=== PATIENT | female | born 1975 | race Caucasian/White ===

== ENCOUNTER 2016-12-26 00:27 | Inpatient (IN) | payer MEDICARE, MEDICAID ==
[~2016-12-26] VITALS: Ht 172.7 cm; Wt 127.9 kg
[~2016-12-26 00:27] MED LIST: DIVAL250 PO; PHEN100C4 PO
[2016-12-26] MEDS ORDERED: IPRATROPIUM BROMIDE (0.02%) 0.5MG/2.5ML NEB HHN STA (00:55)
[2016-12-26] MEDS ORDERED: METHYLPREDNISOLONE SOD SUCC 125 MG/2 ML VIAL IV STA (00:55)
[2016-12-26] MEDS ORDERED: MAGNESIUM 2 G PREMIX 50 ML IV ONE (01:00)
[2016-12-26] MEDS: ALBUTEROL (0.083%) 2.5MG/3ML NEB HHN SCH ×3 (01:05→02:28)
[2016-12-26 01:15] LABS: BASOPHILS % 0.6 % (0.0-2.0); EOSINOPHILS % 0.2 % (0.0-5.0); HEMATOCRIT. 37.8 % (36.0-48.0); HEMOGLOBIN. 12.7 g/dL (12.0-16.0); LYMPHOCYTES % 22.9 % (20.0-50.0); MEAN CORPUSCULAR HEMOGLOBIN 30.3 pg (28.0-32.0); MEAN CORPUSCULAR VOLUME 90.2 fL (81.0-99.0); MEAN PLATELET VOLUME 8.8 fl (7.4-10.4); MONOCYTES % 5.1 % (2.0-8.0); NEUTROPHILS % 71.2 % (40.0-76.0); PLATELET 249 x1000/uL (130-400); RED CELL DISTRIBUTION WIDTH 14.5 % (11.6-14.6)
[2016-12-26] MEDS ORDERED: LORAZEPAM 2MG/ML CPJ IV ONE ×3 (01:15→05:00)
[2016-12-26 01:26] LABS: PROTHROMBIN TIME 10.6 sec (9.4-11.6)
[2016-12-26 01:34] LABS: CARBON DIOXIDE 23 mEq/L (21-32); CHLORIDE 107 mEq/L (98-107); TROPONIN I < 0.02 ng/mL (0.00-0.04)
[2016-12-26] MEDS ORDERED: TETRACAINE/BENZOCAINE/BUTAMBEN 20 GM SPRAY MM SCH ×2 (02:00→05:00)
[2016-12-26] MEDS ORDERED: ALPR2TAB2 PO (09:01)
[2016-12-26] MEDS ORDERED: METF10002 PO (09:07)
[2016-12-26 09:38] VITALS: BP 149/97
[2016-12-26] MEDS ORDERED: HYDROMORPHONE HCL/PF 2MG/ML CPJ IV PRN (10:30)
[2016-12-26] MEDS ORDERED: IPRATROPIUM/ALBUTEROL 0.5-3(2.5)MG/3ML NEB INH PRN (10:30)
[2016-12-26] MEDS: METHYLPREDNISOLONE SOD SUCC 125 MG/2 ML VIAL IV SCH ×2 (10:30→11:45)
[2016-12-26] MEDS ORDERED: DIVALPROEX SODIUM 250MG ER TABLET PO SCH (10:30)
[2016-12-26] MEDS ORDERED: ONDANSETRON HCL 4MG/2ML VIAL IV PRN (10:30)
[2016-12-26] MEDS ORDERED: HYDROCODONE/ACETAMINOPHEN 5/325MG TABLET PO PRN (10:30)
[2016-12-26] MEDS ORDERED: PHENYTOIN SODIUM EXTENDED 100MG CAPSULE PO SCH (10:30)
[2016-12-26] MEDS ORDERED: LORAZEPAM 2MG/ML CPJ IV PRN (10:30)
[2016-12-26] MEDS ORDERED: DEXTROSE 50% WATER 50ML SYRINGE IV PRN (11:00)
[2016-12-26] MEDS ORDERED: LEVOFLOXACIN 500MG PREMIX 100 ML IV SCH (12:00)
[2016-12-26] MEDS ORDERED: BLOOD SUGAR DIAGNOSTIC STRIP TEST SCH (12:30)
[2016-12-26] MEDS ORDERED: INSULIN LISPRO 100 UNITS/ML SUBCUT SCH (13:00)
[2016-12-27] MEDS ORDERED: FOLIC ACID 1MG TABLET PO SCH (09:00)
[2016-12-27] MEDS ORDERED: THIAMINE HCL 100MG TABLET PO SCH (09:00)
== END 2016-12-26 12:15 | disposition left against medical advice (07) | DRG 189 ==
LOC: ER 00:27 → 5EST 05:02 → ENRESERV 08:04
PROVIDERS: ADMIT Internal Medicine Nephrology; ATTEND Internal Medicine Nephrology
PROC: 5A09357 Assistance with Respiratory Ventilation, Less than 24 Consecutive Hours, Continuous Positive Airway Pressure (ICD-10-PCS; principal; 2016-12-26)
DX: J96.00 Acute respiratory failure, unspecified whether with hypoxia or hypercapnia (principal); J45.901 Unspecified asthma with (acute) exacerbation; J44.9 Chronic obstructive pulmonary disease, unspecified; K50.90 Crohn's disease, unspecified, without complications; G40.909 Epilepsy, unspecified, not intractable, without status epilepticus; F15.10 Other stimulant abuse, uncomplicated; E11.9 Type 2 diabetes mellitus without complications; I25.10 Atherosclerotic heart disease of native coronary artery without angina pectoris; F14.10 Cocaine abuse, uncomplicated; Z53.21 Procedure and treatment not carried out due to patient leaving prior to being seen by health care provider; I25.2 Old myocardial infarction; Z88.5 Allergy status to narcotic agent; Z79.899 Other long term (current) drug therapy; Z90.710 Acquired absence of both cervix and uterus
CPT/HCPCS: 36415; 71010; 80053; 83880; 84484; 85025; 85610; 93005; 94640; 94660; 96361; 96374; 96375; 99285; J1956; J2060; J2930; J3475; J7611

== ENCOUNTER 2016-12-31 01:44 | Inpatient (IN) | payer MEDICARE, MEDICAID ==
[~2016-12-31] VITALS: Ht 165.1 cm; Wt 103.4 kg
[~2016-12-31 01:44] MED LIST changes: +ALPR2TAB2 PO; +METF10002 PO
[2016-12-31] MEDS ORDERED: ALBUTEROL (0.083%) 2.5MG/3ML NEB HHN STA (02:49)
[2016-12-31] MEDS ORDERED: IPRATROPIUM BROMIDE (0.02%) 0.5MG/2.5ML NEB HHN STA (02:49)
[2016-12-31] MEDS ORDERED: METHYLPREDNISOLONE SOD SUCC 125 MG/2 ML VIAL IV ONE (03:00)
[2016-12-31] MEDS ORDERED: GUAIFENESIN/CODEINE 200-20MG/10ML UDC PO ONE (03:00)
[2016-12-31 03:27] LABS: BASOPHILS % 0.8 % (0.0-2.0); EOSINOPHILS % 1.4 % (0.0-5.0); HEMATOCRIT. 35.5 % (36.0-48.0); HEMOGLOBIN. 12.3 g/dL (12.0-16.0); LYMPHOCYTES % 31.4 % (20.0-50.0); MEAN CORPUSCULAR HEMOGLOBIN 30.8 pg (28.0-32.0); MEAN CORPUSCULAR VOLUME 89.2 fL (81.0-99.0); MEAN PLATELET VOLUME 8.7 fl (7.4-10.4); MONOCYTES % 3.8 % (2.0-8.0); NEUTROPHILS % 62.6 % (40.0-76.0); PLATELET 181 x1000/uL (130-400); RED BLOOD CELL COUNT 3.98 mill/uL (4.2-5.4); RED CELL DISTRIBUTION WIDTH 14.4 % (11.6-14.6)
[2016-12-31 03:40] LABS: CARBON DIOXIDE 25 mEq/L (21-32); CHLORIDE 108 mEq/L (98-107)
[2016-12-31] MEDS: SODIUM CHLORIDE 0.9% 1,000 ML IV SCH ×2 (06:11→06:21)
[2016-12-31 08:00] VITALS: BP 134/77
[2016-12-31 09:59] VITALS: BP 134/77
[2016-12-31] MEDS ORDERED: GABA300C PO (10:50)
[2016-12-31 11:00] VITALS: BP 141/81
[2016-12-31] MEDS ORDERED: ENOXAPARIN 40MG/0.4ML SYR SUBCUT SCH (11:15)
[2016-12-31] MEDS ORDERED: IPRATROPIUM/ALBUTEROL 0.5-3(2.5)MG/3ML NEB INH PRN (11:15)
[2016-12-31] MEDS ORDERED: DEXTROSE 50% WATER 50ML SYRINGE IV PRN (11:45)
[2016-12-31] MEDS: METHYLPREDNISOLONE SOD SUCC 125 MG/2 ML VIAL IV SCH ×3 (11:56→23:40)
[2016-12-31] MEDS: HYDROCODONE/ACETAMINOPHEN 5/325MG TABLET PO PRN ×2 (11:57→20:53)
[2016-12-31] MEDS: ENOXAPARIN 30MG/0.3ML SYR SUBCUT SCH ×2 (11:57→21:39)
[2016-12-31] MEDS: BLOOD SUGAR DIAGNOSTIC STRIP TEST SCH ×3 (11:57→21:38)
[2016-12-31] MEDS: INSULIN LISPRO 100 UNITS/ML SUBCUT SCH ×3 (12:57→21:00)
[2016-12-31] MEDS ORDERED: LEVOFLOXACIN 500MG PREMIX 100 ML IV SCH (13:00)
[2016-12-31] MEDS ORDERED: POTASSIUM CHLORIDE 20MEQ TABLET SR PO NR (13:00)
[2016-12-31] MEDS: IPRATROPIUM/ALBUTEROL 0.5-3(2.5)MG/3ML NEB INH SCH ×4 (13:12→23:11)
[2016-12-31] MEDS: ACETAMINOPHEN 325MG TABLET PO PRN (14:36)
[2016-12-31] MEDS: GUAIFENESIN 200MG/10ML SUGAR FREE UDC PO PRN ×2 (14:40→22:11)
[2016-12-31 16:17] VITALS: BP 144/76
[2016-12-31] MEDS: LORAZEPAM 2MG/ML CPJ IM PRN (16:42)
[2016-12-31] MEDS: LEVOFLOXACIN 500MG TABLET PO SCH (16:49)
[2016-12-31 20:00] VITALS: BP 155/75
[2016-12-31] MEDS: HYDROMORPHONE HCL/PF 2MG/ML CPJ IV PRN (22:03)
[2016-12-31] MEDS: ONDANSETRON HCL 4MG/2ML VIAL IV PRN (22:14)
[2017-01-01] VITALS: BP 133/76
[2017-01-01] MEDS: LORAZEPAM 2MG/ML CPJ IM PRN ×2 (00:55→17:31)
[2017-01-01] MEDS ORDERED: LOPE2TAB26 PO (03:12)
[2017-01-01] MEDS ORDERED: HYDR10SY11 PO (03:12)
[2017-01-01] MEDS ORDERED: NITR0.4T SL (03:12)
[2017-01-01] MEDS ORDERED: ACET-2178 PO (03:12)
[2017-01-01 04:00] VITALS: BP 102/44
[2017-01-01] MEDS: IPRATROPIUM/ALBUTEROL 0.5-3(2.5)MG/3ML NEB INH SCH ×6 (04:29→23:27)
[2017-01-01] MEDS: METHYLPREDNISOLONE SOD SUCC 125 MG/2 ML VIAL IV SCH ×4 (05:14→23:02)
[2017-01-01] MEDS: BLOOD SUGAR DIAGNOSTIC STRIP TEST SCH ×4 (06:37→20:59)
[2017-01-01] MEDS: INSULIN LISPRO 100 UNITS/ML SUBCUT SCH ×4 (07:50→20:59)
[2017-01-01 08:00] VITALS: BP 108/59
[2017-01-01] MEDS: LEVOFLOXACIN 500MG TABLET PO SCH (09:56)
[2017-01-01] MEDS: ASPIRIN 81MG EC TABLET PO SCH (09:56)
[2017-01-01] MEDS: ENOXAPARIN 30MG/0.3ML SYR SUBCUT SCH ×2 (09:56→21:00)
[2017-01-01 11:45] LABS: BASOPHILS % 0.3 % (0.0-2.0); HEMATOCRIT. 36.3 % (36.0-48.0); HEMOGLOBIN. 12.2 g/dL (12.0-16.0); LYMPHOCYTES % 7.7 % (20.0-50.0); MEAN CORPUSCULAR HEMOGLOBIN 30.6 pg (28.0-32.0); MEAN CORPUSCULAR VOLUME 90.7 fL (81.0-99.0); MEAN PLATELET VOLUME 8.6 fl (7.4-10.4); MONOCYTES % 2.3 % (2.0-8.0); NEUTROPHILS % 89.7 % (40.0-76.0); PLATELET 201 x1000/uL (130-400); RED CELL DISTRIBUTION WIDTH 14.7 % (11.6-14.6)
[2017-01-01 11:55] VITALS: BP 118/50
[2017-01-01 12:02] LABS: CARBON DIOXIDE 25 mEq/L (21-32); CHLORIDE 108 mEq/L (98-107)
[2017-01-01] MEDS ORDERED: LIDOCAINE HCL/PF 1% 2ML VIAL ONE (13:11)
[2017-01-01] MEDS: GUAIFENESIN 200MG/10ML SUGAR FREE UDC PO PRN ×2 (13:31→22:43)
[2017-01-01] MEDS: ONDANSETRON HCL 4MG/2ML VIAL IV PRN ×2 (13:31→23:02)
[2017-01-01] MEDS: HYDROMORPHONE HCL/PF 2MG/ML CPJ IV PRN ×2 (14:08→22:48)
[2017-01-01 14:15] LABS: BG BASE EXCESS -1.2 mmol/L (-2.0-2.0); BG CARBOXYHEMOGLOBIN 0.2 % (0.5-1.5); BG DEOXYHEMOGLOBIN 3.4 % (0.0-5.0); BG FRACTION INSPIRED OXYGEN 21; BG HCO3 ACT 23.1 mmol/L (22.0-26.0); BG METHEMOGLOBIN 0.3 % (0.0-1.5); BG OXYGEN SATURATION 96.6 % (92.0-98.5); BG OXYHEMOGLOBIN 96.1 % (94.0-97.0); BG PCO2 37.2 mmHg (35.0-45.0); BG PO2 88.4 mmHg (75.0-100.0); BG SAMPLE SITE RIGHT RADIAL; BG TOTAL HEMOGLOBIN 13.3 g/dL (12.0-18.0); BG VENT MODE ROOM AIR
[2017-01-01] MEDS: BUDESONIDE 0.5MG/2ML NEB HHN SCH ×2 (14:29→23:27)
[2017-01-01 16:00] VITALS: BP 125/74
[2017-01-01 20:00] VITALS: BP 120/70
[2017-01-02] VITALS (7 sets, daily range): BP systolic 115–156; BP diastolic 65–88
[2017-01-02] MEDS: LORAZEPAM 2MG/ML CPJ IM PRN (01:07)
[2017-01-02] MEDS: HYDROMORPHONE HCL/PF 2MG/ML CPJ IV PRN ×5 (02:57→22:40)
[2017-01-02] MEDS: DIPHENHYDRAMINE 50MG CAPSULE PO PRN ×3 (03:03→23:13)
[2017-01-02] MEDS: IPRATROPIUM/ALBUTEROL 0.5-3(2.5)MG/3ML NEB INH SCH ×5 (04:17→20:10)
[2017-01-02] MEDS: BLOOD SUGAR DIAGNOSTIC STRIP TEST SCH ×4 (06:46→21:45)
[2017-01-02] MEDS: METHYLPREDNISOLONE SOD SUCC 125 MG/2 ML VIAL IV SCH ×2 (06:49→12:03)
[2017-01-02] MEDS: INSULIN LISPRO 100 UNITS/ML SUBCUT SCH ×4 (07:42→21:00)
[2017-01-02] MEDS: BUDESONIDE 0.5MG/2ML NEB HHN SCH ×2 (08:35→20:10)
[2017-01-02] MEDS: GABAPENTIN 300MG CAPSULE PO SCH (08:43)
[2017-01-02] MEDS: ASPIRIN 81MG EC TABLET PO SCH (08:43)
[2017-01-02] MEDS: LEVOFLOXACIN 500MG TABLET PO SCH (08:43)
[2017-01-02] MEDS: DIVALPROEX SODIUM 500MG DR TABLET PO SCH (08:43)
[2017-01-02] MEDS: ENOXAPARIN 30MG/0.3ML SYR SUBCUT SCH ×2 (08:44→22:17)
[2017-01-02] MEDS ORDERED: DIVALPROEX SODIUM 500MG DR TABLET PO ONE (09:00)
[2017-01-02 17:23] LABS: *AMPHETAMINES SCREEN URINE NEGATIVE (NEGATIVE); *BARBITURATES SCREEN URINE NEGATIVE (NEGATIVE); *BENZODIAZEPINES SCREEN URINE NEGATIVE (NEGATIVE); *COCAINE SCREEN URINE NEGATIVE (NEGATIVE); CANNABINOID URINE SCREEN NEGATIVE (NEGATIVE); METHADONE URINE SCREEN NEGATIVE (NEGATIVE); PHENCYCLIDINE URINE SCREEN NEGATIVE (NEGATIVE)
[2017-01-02 17:30] LABS: OPIATES URINE SCREEN PRESUMTIVE POSITIVE (NEGATIVE)
[2017-01-02] MEDS: ACETAMINOPHEN 325MG TABLET PO PRN (19:21)
[2017-01-02] MEDS: METHYLPREDNISOLONE SOD SUCC 40 MG/ML VIAL IV SCH (22:15)
[2017-01-02] MEDS: GUAIFENESIN 600MG ER TABLET PO SCH (22:15)
[2017-01-02] MEDS: LEVOFLOXACIN 500MG PREMIX 100 ML IV SCH (22:18)
[2017-01-02] MEDS: ONDANSETRON HCL 4MG/2ML VIAL IV PRN (22:40)
[2017-01-03] VITALS: BP 129/81
[2017-01-03] MEDS: IPRATROPIUM/ALBUTEROL 0.5-3(2.5)MG/3ML NEB INH SCH ×6 (00:12→23:52)
[2017-01-03] MEDS: LORAZEPAM 2MG/ML CPJ IM PRN (00:44)
[2017-01-03 03:50] VITALS: BP 126/66
[2017-01-03] MEDS: HYDROMORPHONE HCL/PF 2MG/ML CPJ IV PRN ×4 (03:50→21:11)
[2017-01-03] MEDS: METHYLPREDNISOLONE SOD SUCC 40 MG/ML VIAL IV SCH ×2 (06:35→18:16)
[2017-01-03] MEDS: BLOOD SUGAR DIAGNOSTIC STRIP TEST SCH ×4 (06:58→21:12)
[2017-01-03 07:23] VITALS: BP 130/67
[2017-01-03] MEDS: INSULIN LISPRO 100 UNITS/ML SUBCUT SCH ×4 (07:50→21:00)
[2017-01-03] MEDS: GUAIFENESIN 600MG ER TABLET PO SCH ×2 (08:43→21:08)
[2017-01-03] MEDS: DIVALPROEX SODIUM 500MG DR TABLET PO SCH (08:43)
[2017-01-03] MEDS: ASPIRIN 81MG EC TABLET PO SCH (08:43)
[2017-01-03] MEDS: GABAPENTIN 300MG CAPSULE PO SCH (08:43)
[2017-01-03] MEDS: DIPHENHYDRAMINE 50MG CAPSULE PO PRN ×2 (08:44→18:16)
[2017-01-03] MEDS: ENOXAPARIN 30MG/0.3ML SYR SUBCUT SCH ×2 (08:45→21:09)
[2017-01-03] MEDS: BUDESONIDE 0.5MG/2ML NEB HHN SCH ×2 (08:51→19:55)
[2017-01-03 11:15] VITALS: BP 149/72
[2017-01-03 15:22] VITALS: BP 158/98
[2017-01-03] MEDS ORDERED: LORAZEPAM 2MG/ML CPJ IM PRN (16:30)
[2017-01-03] MEDS: LORAZEPAM 2MG/ML CPJ IV PRN (17:15)
[2017-01-03 20:00] VITALS: BP 153/87
[2017-01-03] MEDS: LEVOFLOXACIN 500MG PREMIX 100 ML IV SCH (21:11)
[2017-01-04] VITALS: BP 139/79
[2017-01-04 04:00] VITALS: BP 133/75
[2017-01-04] MEDS: IPRATROPIUM/ALBUTEROL 0.5-3(2.5)MG/3ML NEB INH SCH ×5 (04:07→20:30)
[2017-01-04] MEDS: BLOOD SUGAR DIAGNOSTIC STRIP TEST SCH ×4 (06:32→21:09)
[2017-01-04] MEDS: METHYLPREDNISOLONE SOD SUCC 40 MG/ML VIAL IV SCH ×2 (06:34→17:53)
[2017-01-04] MEDS: INSULIN LISPRO 100 UNITS/ML SUBCUT SCH ×4 (07:50→21:00)
[2017-01-04 08:00] VITALS: BP 142/92
[2017-01-04] MEDS: GUAIFENESIN 600MG ER TABLET PO SCH ×2 (09:12→21:14)
[2017-01-04] MEDS: ENOXAPARIN 30MG/0.3ML SYR SUBCUT SCH ×2 (09:12→21:56)
[2017-01-04] MEDS: GABAPENTIN 300MG CAPSULE PO SCH (09:12)
[2017-01-04] MEDS: ONDANSETRON HCL 4MG/2ML VIAL IV PRN (09:12)
[2017-01-04] MEDS: ASPIRIN 81MG EC TABLET PO SCH (09:12)
[2017-01-04] MEDS: GUAIFENESIN 200MG/10ML SUGAR FREE UDC PO PRN ×2 (09:12→17:53)
[2017-01-04] MEDS: DIVALPROEX SODIUM 500MG DR TABLET PO SCH (09:12)
[2017-01-04] MEDS: HYDROMORPHONE HCL/PF 2MG/ML CPJ IV PRN ×3 (09:14→21:24)
[2017-01-04] MEDS: LORAZEPAM 2MG/ML CPJ IV PRN ×2 (11:45→23:57)
[2017-01-04 12:00] VITALS: BP 125/64
[2017-01-04 16:00] VITALS: BP 90/49
[2017-01-04 20:00] VITALS: BP 159/102
[2017-01-04] MEDS: LEVOFLOXACIN 500MG PREMIX 100 ML IV SCH (21:14)
[2017-01-05] VITALS: BP 131/77
[2017-01-05] MEDS: DIPHENHYDRAMINE 50MG CAPSULE PO PRN ×4 (00:01→20:54)
[2017-01-05] MEDS: IPRATROPIUM/ALBUTEROL 0.5-3(2.5)MG/3ML NEB INH SCH ×6 (00:08→23:14)
[2017-01-05] MEDS: BUDESONIDE 0.5MG/2ML NEB HHN SCH ×3 (00:09→19:57)
[2017-01-05] MEDS: ONDANSETRON HCL 4MG/2ML VIAL IV PRN ×3 (00:30→15:47)
[2017-01-05] MEDS: HYDROMORPHONE HCL/PF 2MG/ML CPJ IV PRN ×4 (03:01→20:54)
[2017-01-05 04:00] VITALS: BP 131/78
[2017-01-05] MEDS: HYDROCODONE/ACETAMINOPHEN 5/325MG TABLET PO PRN (06:02)
[2017-01-05] MEDS: METHYLPREDNISOLONE SOD SUCC 40 MG/ML VIAL IV SCH ×2 (06:02→17:42)
[2017-01-05] MEDS: BLOOD SUGAR DIAGNOSTIC STRIP TEST SCH ×4 (06:12→20:53)
[2017-01-05 07:36] VITALS: BP 132/81
[2017-01-05] MEDS: INSULIN LISPRO 100 UNITS/ML SUBCUT SCH ×4 (07:50→20:55)
[2017-01-05] MEDS: DIVALPROEX SODIUM 500MG DR TABLET PO SCH (09:42)
[2017-01-05] MEDS: GABAPENTIN 300MG CAPSULE PO SCH (09:42)
[2017-01-05] MEDS: GUAIFENESIN 600MG ER TABLET PO SCH ×2 (09:42→20:52)
[2017-01-05] MEDS: ENOXAPARIN 30MG/0.3ML SYR SUBCUT SCH ×2 (09:42→20:53)
[2017-01-05] MEDS: ASPIRIN 81MG EC TABLET PO SCH (09:42)
[2017-01-05 11:25] VITALS: BP 117/66
[2017-01-05 15:39] VITALS: BP 114/84
[2017-01-05 20:00] VITALS: BP 135/63
[2017-01-05] MEDS: LEVOFLOXACIN 500MG PREMIX 100 ML IV SCH (20:52)
[2017-01-05] MEDS: LORAZEPAM 2MG/ML CPJ IV PRN (20:53)
[2017-01-06] VITALS: BP 139/98
[2017-01-06] MEDS: HYDROMORPHONE HCL/PF 2MG/ML CPJ IM PRN ×4 (01:11→21:01)
[2017-01-06 04:00] VITALS: BP 156/94
[2017-01-06] MEDS: DIPHENHYDRAMINE 50MG CAPSULE PO PRN ×2 (04:06→21:01)
[2017-01-06] MEDS: NITROGLYCERIN 0.4MG TABLET SL SL PRN ×4 (04:36→22:07)
[2017-01-06] MEDS: LORAZEPAM 2MG/ML CPJ IV PRN ×2 (05:55→18:12)
[2017-01-06] MEDS: METHYLPREDNISOLONE SOD SUCC 40 MG/ML VIAL IV SCH ×2 (05:55→18:12)
[2017-01-06] MEDS: BLOOD SUGAR DIAGNOSTIC STRIP TEST SCH ×4 (06:27→21:59)
[2017-01-06 07:06] LABS: HEMATOCRIT 37.8 % (36.0-48.0); HEMOGLOBIN 12.5 g/dL (12.0-16.0); MEAN CORPUSCULAR HEMOGLOBIN 30.7 pg (28.0-32.0); MEAN CORPUSCULAR VOLUME 92.6 fL (81.0-99.0); PLATELET 178 x1000/uL (130-400); RED BLOOD CELL COUNT 4.08 mill/uL (4.2-5.4); RED CELL DISTRIBUTION WIDTH 15.1 % (11.6-14.6)
[2017-01-06] MEDS: INSULIN LISPRO 100 UNITS/ML SUBCUT SCH ×4 (07:50→21:00)
[2017-01-06 08:10] VITALS: BP 126/75
[2017-01-06] MEDS: IPRATROPIUM/ALBUTEROL 0.5-3(2.5)MG/3ML NEB INH SCH ×4 (08:42→20:27)
[2017-01-06] MEDS: BUDESONIDE 0.5MG/2ML NEB HHN SCH ×2 (08:43→20:28)
[2017-01-06] MEDS: DIVALPROEX SODIUM 500MG DR TABLET PO SCH ×2 (09:00→11:27)
[2017-01-06] MEDS: ENOXAPARIN 30MG/0.3ML SYR SUBCUT SCH ×3 (09:00→21:00)
[2017-01-06] MEDS: GUAIFENESIN 600MG ER TABLET PO SCH ×3 (09:00→20:59)
[2017-01-06] MEDS: GABAPENTIN 300MG CAPSULE PO SCH ×2 (09:00→11:27)
[2017-01-06] MEDS: ASPIRIN 81MG EC TABLET PO SCH ×2 (09:00→11:27)
[2017-01-06 09:10] VITALS: BP 126/75
[2017-01-06 16:00] VITALS: BP 153/95
[2017-01-06] MEDS: ONDANSETRON HCL 4MG/2ML VIAL IV PRN ×2 (17:02→23:38)
[2017-01-06 20:00] VITALS: BP 139/73
[2017-01-06] MEDS: LEVOFLOXACIN 500MG PREMIX 100 ML IV SCH (20:59)
[2017-01-06] MEDS: HYDROCODONE/ACETAMINOPHEN 5/325MG TABLET PO PRN (23:38)
[2017-01-07] VITALS (7 sets, daily range): BP systolic 107–148; BP diastolic 68–93
[2017-01-07] MEDS: IPRATROPIUM/ALBUTEROL 0.5-3(2.5)MG/3ML NEB INH SCH ×6 (01:00→21:19)
[2017-01-07] MEDS: HYDROMORPHONE HCL/PF 2MG/ML CPJ IM PRN ×4 (01:12→19:47)
[2017-01-07] MEDS: NITROGLYCERIN 0.4MG TABLET SL SL PRN ×3 (01:14→15:18)
[2017-01-07] MEDS: LORAZEPAM 2MG/ML CPJ IV PRN (05:32)
[2017-01-07] MEDS: METHYLPREDNISOLONE SOD SUCC 40 MG/ML VIAL IV SCH (05:32)
[2017-01-07] MEDS: BLOOD SUGAR DIAGNOSTIC STRIP TEST SCH ×4 (06:47→21:23)
[2017-01-07] MEDS: INSULIN LISPRO 100 UNITS/ML SUBCUT SCH ×4 (07:50→21:00)
[2017-01-07] MEDS: BUDESONIDE 0.5MG/2ML NEB HHN SCH ×2 (08:06→21:18)
[2017-01-07] MEDS: DIVALPROEX SODIUM 500MG DR TABLET PO SCH (08:55)
[2017-01-07] MEDS: ASPIRIN 81MG EC TABLET PO SCH (08:55)
[2017-01-07] MEDS: GUAIFENESIN 600MG ER TABLET PO SCH ×2 (08:55→21:34)
[2017-01-07] MEDS: GABAPENTIN 300MG CAPSULE PO SCH (08:55)
[2017-01-07] MEDS: ENOXAPARIN 30MG/0.3ML SYR SUBCUT SCH ×2 (08:56→21:34)
[2017-01-07] MEDS: DIPHENHYDRAMINE 50MG CAPSULE PO PRN (13:10)
[2017-01-07] MEDS: ONDANSETRON HCL 4MG/2ML VIAL IV PRN (21:34)
[2017-01-07] MEDS: LEVOFLOXACIN 500MG PREMIX 100 ML IV SCH (21:35)
[2017-01-08] VITALS (7 sets, daily range): BP systolic 110–148; BP diastolic 56–89
[2017-01-08] MEDS: LORAZEPAM 2MG/ML CPJ IV PRN ×2 (00:20→11:28)
[2017-01-08] MEDS: NITROGLYCERIN 0.4MG TABLET SL SL PRN ×3 (00:20→11:43)
[2017-01-08] MEDS: HYDROMORPHONE HCL/PF 2MG/ML CPJ IM PRN ×3 (01:37→17:14)
[2017-01-08] MEDS: IPRATROPIUM/ALBUTEROL 0.5-3(2.5)MG/3ML NEB INH SCH ×7 (01:50→23:22)
[2017-01-08] MEDS: DIPHENHYDRAMINE 50MG CAPSULE PO PRN (04:16)
[2017-01-08] MEDS: BLOOD SUGAR DIAGNOSTIC STRIP TEST SCH ×4 (06:15→21:43)
[2017-01-08] MEDS: INSULIN LISPRO 100 UNITS/ML SUBCUT SCH ×4 (07:45→21:00)
[2017-01-08] MEDS ORDERED: PREDNISONE 20MG TABLET PO SCH (09:00)
[2017-01-08] MEDS: DIVALPROEX SODIUM 500MG DR TABLET PO SCH (10:07)
[2017-01-08] MEDS: ENOXAPARIN 30MG/0.3ML SYR SUBCUT SCH ×2 (10:07→21:48)
[2017-01-08] MEDS: ONDANSETRON HCL 4MG/2ML VIAL IV PRN (10:07)
[2017-01-08] MEDS: GABAPENTIN 300MG CAPSULE PO SCH (10:07)
[2017-01-08] MEDS: GUAIFENESIN 600MG ER TABLET PO SCH ×2 (10:07→21:48)
[2017-01-08] MEDS: ASPIRIN 81MG EC TABLET PO SCH (10:08)
[2017-01-08] MEDS: LEVOFLOXACIN 500MG PREMIX 100 ML IV SCH (21:48)
[2017-01-09] MEDS: IPRATROPIUM/ALBUTEROL 0.5-3(2.5)MG/3ML NEB INH SCH ×5 (04:29→20:11)
[2017-01-09 04:37] VITALS: BP 121/69
[2017-01-09] MEDS: DIPHENHYDRAMINE 50MG CAPSULE PO PRN ×3 (04:57→18:53)
[2017-01-09] MEDS: HYDROMORPHONE HCL/PF 2MG/ML CPJ IM PRN ×3 (04:58→17:42)
[2017-01-09] MEDS: ONDANSETRON HCL 4MG/2ML VIAL IV PRN ×3 (05:05→17:41)
[2017-01-09] MEDS: NITROGLYCERIN 0.4MG TABLET SL SL PRN ×2 (06:00→06:38)
[2017-01-09] MEDS: BLOOD SUGAR DIAGNOSTIC STRIP TEST SCH ×4 (06:04→20:29)
[2017-01-09] MEDS: HYDROCODONE/ACETAMINOPHEN 5/325MG TABLET PO PRN (06:46)
[2017-01-09] MEDS: INSULIN LISPRO 100 UNITS/ML SUBCUT SCH ×4 (07:26→20:29)
[2017-01-09 07:29] VITALS: BP 128/88
[2017-01-09] MEDS: GUAIFENESIN 200MG/10ML SUGAR FREE UDC PO PRN (07:33)
[2017-01-09] MEDS: DIVALPROEX SODIUM 500MG DR TABLET PO SCH (09:10)
[2017-01-09] MEDS: GABAPENTIN 300MG CAPSULE PO SCH (09:10)
[2017-01-09] MEDS: GUAIFENESIN 600MG ER TABLET PO SCH ×2 (09:11→20:21)
[2017-01-09] MEDS: ASPIRIN 81MG EC TABLET PO SCH (09:11)
[2017-01-09] MEDS: PREDNISONE 20MG TABLET PO SCH (09:11)
[2017-01-09] MEDS: ENOXAPARIN 30MG/0.3ML SYR SUBCUT SCH ×2 (09:12→20:22)
[2017-01-09] MEDS: LORAZEPAM 2MG/ML CPJ IV PRN ×2 (09:12)
[2017-01-09 12:23] VITALS: BP 133/73
[2017-01-09 16:22] VITALS: BP 113/57
[2017-01-09] MEDS: LEVOFLOXACIN 500MG PREMIX 100 ML IV SCH (20:21)
[2017-01-09 20:56] VITALS: BP 94/56
[2017-01-09] MEDS: LORAZEPAM 2MG/ML CPJ IM PRN (21:20)
[2017-01-10] VITALS: BP 106/69
[2017-01-10] MEDS: ONDANSETRON HCL 4MG/2ML VIAL IV PRN (00:25)
[2017-01-10] MEDS: HYDROMORPHONE HCL/PF 2MG/ML CPJ IM PRN ×2 (00:25→05:06)
[2017-01-10] MEDS: IPRATROPIUM/ALBUTEROL 0.5-3(2.5)MG/3ML NEB INH SCH ×3 (00:50→09:11)
[2017-01-10 04:00] VITALS: BP 140/86
[2017-01-10] MEDS: LORAZEPAM 2MG/ML CPJ IM PRN (06:32)
[2017-01-10] MEDS: BLOOD SUGAR DIAGNOSTIC STRIP TEST SCH ×3 (06:47→16:19)
[2017-01-10] MEDS: INSULIN LISPRO 100 UNITS/ML SUBCUT SCH ×3 (06:53→16:19)
[2017-01-10 08:00] VITALS: BP 102/49
[2017-01-10] MEDS: DIVALPROEX SODIUM 500MG DR TABLET PO SCH (09:03)
[2017-01-10] MEDS: GUAIFENESIN 600MG ER TABLET PO SCH (09:03)
[2017-01-10] MEDS: PREDNISONE 20MG TABLET PO SCH (09:03)
[2017-01-10] MEDS: GABAPENTIN 300MG CAPSULE PO SCH (09:03)
[2017-01-10] MEDS: ASPIRIN 81MG EC TABLET PO SCH (09:03)
[2017-01-10] MEDS: ENOXAPARIN 30MG/0.3ML SYR SUBCUT SCH (09:04)
[2017-01-10] MEDS ORDERED: LORAZEPAM 2MG/ML CPJ IV SCH (12:00)
== END 2017-01-10 19:30 | disposition home or self-care (01) | DRG 189 ==
LOC: ER 02:14 → 6WST 05:51 → EDBEDREQTM 05:56 → EDBEDREQ 05:56 → ENRESERV 06:44 → 6WST 01-05 05:42
PROVIDERS: ADMIT Hospitalist; ATTEND Hospitalist
PROC: 02HV33Z Insertion of Infusion Device into Superior Vena Cava, Percutaneous Approach (ICD-10-PCS; principal; 2017-01-01)
PROC: B548ZZA Ultrasonography of Superior Vena Cava, Guidance (ICD-10-PCS; 2017-01-01)
PROC: 5A09457 Assistance with Respiratory Ventilation, 24-96 Consecutive Hours, Continuous Positive Airway Pressure (ICD-10-PCS; 2017-01-03)
DX: J96.00 Acute respiratory failure, unspecified whether with hypoxia or hypercapnia (principal); J45.901 Unspecified asthma with (acute) exacerbation; K50.90 Crohn's disease, unspecified, without complications; I10 Essential (primary) hypertension; G40.909 Epilepsy, unspecified, not intractable, without status epilepticus; E78.00 Pure hypercholesterolemia, unspecified; E11.9 Type 2 diabetes mellitus without complications; F31.9 Bipolar disorder, unspecified; K42.9 Umbilical hernia without obstruction or gangrene; F41.9 Anxiety disorder, unspecified; Z88.8 Allergy status to other drugs, medicaments and biological substances; Z86.73 Personal history of transient ischemic attack (TIA), and cerebral infarction without residual deficits; Z90.710 Acquired absence of both cervix and uterus; Z79.899 Other long term (current) drug therapy
CPT/HCPCS: 36415; 36569; 36600; 71010; 76937; 77001; 80048; 80053; 80305; 82375; 82805; 82962; 83605; 83880; 85025; 85027; 87040; 87804; 93005; 93306; 94640; 94660; 96374; 99285; C1725; C1893; J1170; J1650; J1815; J1956; J2060; J2405; J2920; J2930; J3490; J7030; J7040; J7050; J7512; J7611; J7620; J7626; Q0163

== ENCOUNTER 2017-03-05 04:36 | Emergency (ER) | payer MEDICARE, MEDICAID ==
[~2017-03-05] VITALS: Ht 165.1 cm; Wt 107.0 kg
[~2017-03-05 04:36] MED LIST changes: +ACET-2178 PO; +GABA300C PO; +HYDR10SY11 PO; +LOPE2TAB26 PO; +NITR0.4T SL
[2017-03-05] MEDS ORDERED: ALBUTEROL (0.083%) 2.5MG/3ML NEB HHN STA (06:34)
[2017-03-05 08:22] LABS: HEMATOCRIT. 39.6 % (36.0-48.0); HEMOGLOBIN. 13.4 g/dL (12.0-16.0); MEAN CORPUSCULAR HEMOGLOBIN 31.5 pg (28.0-32.0); MEAN CORPUSCULAR VOLUME 92.9 fL (81.0-99.0); MEAN PLATELET VOLUME 7.9 fl (7.4-10.4); PLATELET 184 x1000/uL (130-400); RED BLOOD CELL COUNT 4.26 mill/uL (4.2-5.4); RED CELL DISTRIBUTION WIDTH 15.2 % (11.6-14.6)
[2017-03-05 08:30] LABS: INR 1.1; PARTIAL THROMBOPLASTIN TIME 23.8 sec (23.4-31.0); PROTHROMBIN TIME 11.4 sec (9.4-11.6)
[2017-03-05 08:44] LABS: CARBON DIOXIDE 29 mEq/L (21-32); CHLORIDE 103 mEq/L (98-107); TROPONIN I < 0.02 ng/mL (0.00-0.04)
[2017-03-05 09:13] LABS: PLATELET ESTIMATE NORMAL
[2017-03-05] MEDS ORDERED: POTASSIUM CHLORIDE 20MEQ TABLET SR PO ONE (09:15)
[2017-03-05] MEDS ORDERED: DIVALPROEX SODIUM 250MG ER TABLET PO ONE (09:15)
[2017-03-05 09:25] LABS: HCG SCREEN NEGATIVE
[2017-03-05] MEDS ORDERED: DIVALPROEX SODIUM 500MG ER TABLET PO NR (10:00)
[2017-03-05 12:20] VITALS: BP 107/60
== END 2017-03-05 13:33 | disposition home or self-care (01) ==
LOC: ER 04:36
DX: J44.9 Chronic obstructive pulmonary disease, unspecified (principal); G40.909 Epilepsy, unspecified, not intractable, without status epilepticus; I51.9 Heart disease, unspecified; E11.9 Type 2 diabetes mellitus without complications; Z88.6 Allergy status to analgesic agent; Z91.040 Latex allergy status; Z98.890 Other specified postprocedural states
CPT/HCPCS: 36415; 71010; 80053; 80165; 80185; 82962; 83690; 83880; 84484; 84703; 85025; 85610; 85730; 93005; 94644; 99285; J7611

== ENCOUNTER 2017-07-19 14:21 | Emergency (ER) | payer MEDICARE, MEDICAID ==
[~2017-07-19] VITALS: Ht 165.1 cm; Wt 111.0 kg
[~2017-07-19 14:21] MED LIST changes: +LIDOCAINE PATCH *; -METF10002 PO; +QUET300T2 PO; +TRAZ-132 PO
[2017-07-19] MEDS ORDERED: DIPH25CA83 PO (14:54)
[2017-07-19] MEDS ORDERED: SUMA100T16 PO (14:54)
[2017-07-19] MEDS ORDERED: CHLO25TA27 GT (14:54)
[2017-07-19] MEDS ORDERED: NITR0.4T49 SL (14:54)
[2017-07-19] MEDS ORDERED: FURO20TA4 PO (14:54)
[2017-07-19] MEDS ORDERED: CYCL30DR OP (14:54)
[2017-07-19] MEDS ORDERED: FLUO20TA29 PO (14:54)
[2017-07-19] MEDS ORDERED: GABA-290 PO (14:54)
[2017-07-19] MEDS ORDERED: DIVA500T51 PO (14:54)
[2017-07-19] MEDS ORDERED: PRED5TAB48 PO (14:54)
== END 2017-07-19 15:59 | disposition left against medical advice (07) ==
LOC: ER 15:30
DX: M79.89 Other specified soft tissue disorders (principal); R06.02 Shortness of breath
CPT/HCPCS: 99281

== ENCOUNTER 2018-01-30 18:30 | Inpatient (IN) | payer MEDICARE, MEDICAID ==
[~2018-01-30] VITALS: Ht 165.1 cm; Wt 103.4 kg
[~2018-01-30 18:30] MED LIST changes: +CHLO25TA27 GT; +CYCL30DR OP; +DIPH25CA83 PO; +DIVA500T51 PO; +FLUO20TA29 PO; +FURO20TA4 PO; +GABA-290 PO; +NITR0.4T49 SL; +PRED5TAB48 PO; +SUMA100T16 PO; -TRAZ-132 PO; +TRAZ-213 PO
[2018-01-30 18:50] LABS: EOSINOPHILS % 0.6 % (0.0-5.0); HEMATOCRIT. 41.9 % (36.0-48.0); MEAN CORPUSCULAR HEMOGLOBIN 30.2 pg (28.0-32.0); MEAN CORPUSCULAR VOLUME 90.4 fL (81.0-99.0); MEAN PLATELET VOLUME 8.6 fl (7.4-10.4); MONOCYTES % 3.8 % (2.0-8.0); NEUTROPHILS % 65.6 % (40.0-76.0); PLATELET 262 x1000/uL (130-400); RED BLOOD CELL COUNT 4.64 mill/uL (4.2-5.4); RED CELL DISTRIBUTION WIDTH 14.9 % (11.6-14.6)
[2018-01-30 18:55] LABS: CHLORIDE 107 mEq/L (98-107); PROTHROMBIN TIME 9.8 sec (9.1-11.1)
[2018-01-30 18:58] LABS: ETHANOL BLOOD < 10 mg/dL
[2018-01-30] MEDS ORDERED: MORPHINE SULFATE 4 MG/ML CPJ (NOT FOR IM USE) IV ONE (19:00)
[2018-01-30 19:04] LABS: LDL CHOLESTEROL 160 mg/dL (5-100)
[2018-01-30] MEDS ORDERED: PROCHLORPERAZINE 10MG/2ML VIAL IV ONE (19:45)
[2018-01-30 20:00] LABS: CLARITY URINE CLEAR (CLEAR); COLOR URINE YELLOW (YELLOW); KETONES URINE TRACE (NEGATIVE); LEUKOCYTE ESTERASE URINE NEGATIVE (NEGATIVE); NITRITE URINE NEGATIVE (NEGATIVE); OCCULT BLOOD URINE TRACE (NEGATIVE); PROTEIN URINE TRACE (NEGATIVE); SPECIFIC GRAVITY URINE 1.038 (1.005-1.030)
[2018-01-30 20:09] LABS: *AMPHETAMINES SCREEN URINE NEGATIVE (NEGATIVE); *BARBITURATES SCREEN URINE NEGATIVE (NEGATIVE); *BENZODIAZEPINES SCREEN URINE NEGATIVE (NEGATIVE)
[2018-01-30 20:10] LABS: *COCAINE SCREEN URINE NEGATIVE (NEGATIVE); CANNABINOID URINE SCREEN NEGATIVE (NEGATIVE); METHADONE URINE SCREEN NEGATIVE (NEGATIVE); PHENCYCLIDINE URINE SCREEN NEGATIVE (NEGATIVE)
[2018-01-30 20:14] LABS: OPIATES URINE SCREEN PRESUMTIVE POSITIVE (NEGATIVE)
[2018-01-31 01:45] VITALS: BP 130/74
[2018-01-31] MEDS ORDERED: DEXTROSE 50% WATER 50ML SYRINGE IV PRN (02:30)
[2018-01-31] MEDS ORDERED: ACETAMINOPHEN 325MG TABLET PO PRN (02:30)
[2018-01-31] MEDS ORDERED: NITROGLYCERIN 0.4MG TABLET SL SL PRN (02:45)
[2018-01-31] MEDS ORDERED: ATOR10TA PO (02:45)
[2018-01-31] MEDS ORDERED: BLOOD SUGAR DIAGNOSTIC STRIP TEST SCH (07:10)
[2018-01-31] MEDS ORDERED: INSULIN LISPRO 100 UNITS/ML SUBCUT SCH (07:40)
[2018-01-31] MEDS ORDERED: QUETIAPINE FUMARATE 100MG TABLET PO SCH (09:00)
[2018-01-31] MEDS ORDERED: MEDICATION NOT ON FORMULARY EA (Gabapentin (Neurontin) 1 CAP) PO SCH (09:00)
[2018-01-31] MEDS ORDERED: ENOXAPARIN 40MG/0.4ML SYR SUBCUT SCH (09:00)
[2018-01-31] MEDS ORDERED: MEDICATION NOT ON FORMULARY EA (Quetiapine Fumarate (Seroquel) 300 MG) PO SCH (09:00)
[2018-01-31] MEDS ORDERED: ASPIRIN 81MG EC TABLET PO SCH (09:00)
[2018-01-31] MEDS ORDERED: DIVALPROEX SODIUM 500MG ER TABLET PO SCH (09:00)
[2018-01-31] MEDS ORDERED: FAMOTIDINE 20MG TABLET PO SCH (09:00)
[2018-01-31] MEDS ORDERED: ENOXAPARIN 30MG/0.3ML SYR SUBCUT SCH (09:00)
[2018-01-31] MEDS ORDERED: GABAPENTIN 300MG CAPSULE PO SCH (09:00)
[2018-01-31] MEDS ORDERED: MEDICATION NOT ON FORMULARY EA (Trazodone Hcl 100 MG) PO SCH (21:00)
[2018-01-31] MEDS ORDERED: TRAZODONE HCL 100MG TABLET PO SCH (21:00)
[2018-01-31] MEDS ORDERED: ATORVASTATIN CALCIUM 10MG TABLET PO SCH (21:00)
== END 2018-01-31 04:00 | disposition left against medical advice (07) | DRG 74 ==
LOC: ER 18:30 → 8WST 20:39 → EDBEDREQ 20:47 → EDBEDREQTM 20:47 → EDBEDREQSVC 20:47 → ENRESERV 22:43
PROVIDERS: ADMIT Internal Medicine Geriatric Medicine; ATTEND Internal Medicine Geriatric Medicine
DX: G90.8 Other disorders of autonomic nervous system (principal); R53.1 Weakness; J44.9 Chronic obstructive pulmonary disease, unspecified; G40.909 Epilepsy, unspecified, not intractable, without status epilepticus; E11.9 Type 2 diabetes mellitus without complications; I10 Essential (primary) hypertension; Z53.21 Procedure and treatment not carried out due to patient leaving prior to being seen by health care provider; I25.10 Atherosclerotic heart disease of native coronary artery without angina pectoris; Z90.710 Acquired absence of both cervix and uterus; Z98.891 History of uterine scar from previous surgery; Z88.8 Allergy status to other drugs, medicaments and biological substances; Z86.73 Personal history of transient ischemic attack (TIA), and cerebral infarction without residual deficits; Z91.041 Radiographic dye allergy status; Z91.040 Latex allergy status; Z79.84 Long term (current) use of oral hypoglycemic drugs
CPT/HCPCS: 36415; 71045; 71250; 80165; 80305; 83721; 84484; 93005; 96374; 96375; 99285; G0482; J0780; J2270

== ENCOUNTER 2018-04-10 11:10 | Inpatient (IN) | payer MEDICARE, MEDICAID ==
[~2018-04-10] VITALS: Ht 165.1 cm; Wt 114.8 kg
[~2018-04-10 11:10] MED LIST changes: +ATOR10TA PO
[2018-04-10] MEDS ORDERED: MORPHINE SULFATE 4 MG/ML CPJ (NOT FOR IM USE) IV STA (13:09)
[2018-04-10] MEDS ORDERED: SODIUM CHLORIDE 0.9% 1,000 ML IV ONE (13:09)
[2018-04-10] MEDS ORDERED: PANTOPRAZOLE 80 MG in SODIUM CHLORIDE 0.9% 100 ML IV SCH ×2 (13:15→13:30)
[2018-04-10] MEDS ORDERED: PANTOPRAZOLE SODIUM 40 MG/VIAL IV ONE (13:15)
[2018-04-10] MEDS ORDERED: METOCLOPRAMIDE HCL 10MG/2ML VIAL IV ONE (13:15)
[2018-04-10 13:35] LABS: BASOPHILS % 0.2 % (0.0-2.0); EOSINOPHILS % 0.9 % (0.0-5.0); HEMOGLOBIN. 13.8 g/dL (12.0-16.0); LYMPHOCYTES % 10.2 % (20.0-50.0); MEAN CORPUSCULAR HEMOGLOBIN 29.1 pg (28.0-32.0); MEAN CORPUSCULAR VOLUME 88.6 fL (81.0-99.0); MEAN PLATELET VOLUME 8.9 fl (7.4-10.4); MONOCYTES % 2.5 % (2.0-8.0); NEUTROPHILS % 86.2 % (40.0-76.0); PLATELET 219 x1000/uL (130-400); RED BLOOD CELL COUNT 4.74 mill/uL (4.2-5.4); RED CELL DISTRIBUTION WIDTH 14.6 % (11.6-14.6)
[2018-04-10 13:41] LABS: CHLORIDE 109 mEq/L (98-107)
[2018-04-10 13:45] LABS: ETHANOL BLOOD < 10 mg/dL
[2018-04-10 14:16] LABS: HCG SCREEN NEGATIVE
[2018-04-10 15:04] LABS: CLARITY URINE CLEAR (CLEAR); COLOR URINE YELLOW (YELLOW); KETONES URINE NEGATIVE (NEGATIVE); LEUKOCYTE ESTERASE URINE NEGATIVE (NEGATIVE); NITRITE URINE NEGATIVE (NEGATIVE); OCCULT BLOOD URINE 1+ (NEGATIVE); PH URINE 5.5 (4.5-8.0); PROTEIN URINE NEGATIVE (NEGATIVE); SPECIFIC GRAVITY URINE 1.022 (1.005-1.030); UROBILINOGEN URINE 0.2 E.U./dL (0.2-1.0)
[2018-04-10 15:19] LABS: *AMPHETAMINES SCREEN URINE NEGATIVE (NEGATIVE); *BARBITURATES SCREEN URINE NEGATIVE (NEGATIVE); *BENZODIAZEPINES SCREEN URINE NEGATIVE (NEGATIVE); *COCAINE SCREEN URINE NEGATIVE (NEGATIVE); METHADONE URINE SCREEN NEGATIVE (NEGATIVE); PHENCYCLIDINE URINE SCREEN NEGATIVE (NEGATIVE)
[2018-04-10 15:20] LABS: CANNABINOID URINE SCREEN NEGATIVE (NEGATIVE)
[2018-04-10 15:22] LABS: OPIATES URINE SCREEN PRESUMTIVE POSITIVE (NEGATIVE)
[2018-04-10] MEDS ORDERED: MAGNESIUM/ALUMINUM HYDROXIDE/SIMETHICONE 30ML UDC PO PRN (17:15)
[2018-04-10] MEDS ORDERED: IPRATROPIUM/ALBUTEROL 0.5-3(2.5)MG/3ML NEB INH PRN (17:15)
[2018-04-10] MEDS ORDERED: CLONIDINE 0.1MG TABLET PO PRN (17:15)
[2018-04-10] MEDS ORDERED: ACETAMINOPHEN 325MG TABLET PO PRN (17:15)
[2018-04-10] MEDS ORDERED: HYDRALAZINE 20MG/ML VIAL IV PRN (17:15)
[2018-04-10] MEDS ORDERED: GUAIFENESIN 200MG/10ML SUGAR FREE UDC PO PRN (17:15)
[2018-04-10] MEDS ORDERED: HYDROCODONE/ACETAMINOPHEN 10/325MG TABLET PO PRN (17:15)
[2018-04-10] MEDS ORDERED: DOCUSATE SODIUM 100MG CAPSULE PO PRN (17:15)
[2018-04-10] MEDS: DEXTROSE 50% WATER 50ML SYRINGE IV PRN ×3 (18:08→20:46)
[2018-04-10] MEDS: BLOOD SUGAR DIAGNOSTIC STRIP TEST SCH (20:43)
[2018-04-10] MEDS: INSULIN LISPRO 100 UNITS/ML SUBCUT SCH (20:54)
[2018-04-10] MEDS: SODIUM CHLORIDE 0.9% INJ 3ML FLUSH IVF SCH (20:54)
[2018-04-10 21:00] VITALS: BP 106/66
[2018-04-10 21:04] VITALS: BP 106/66
[2018-04-10] MEDS: HYDROMORPHONE HCL/PF 2MG/ML CPJ IV PRN (21:06)
[2018-04-10] MEDS: METOCLOPRAMIDE HCL 10MG/2ML VIAL IV PRN (23:46)
[2018-04-11] VITALS: BP 144/62
[2018-04-11] MEDS: LORAZEPAM 2MG/ML CPJ IV PRN (00:30)
[2018-04-11 01:09] LABS: CREATINE KINASE 59 IU/L (26-192)
[2018-04-11] MEDS: DEXT 5%/0.45% NACL 1000ML 1,000 ML IV SCH ×2 (01:16→14:13)
[2018-04-11 01:23] LABS: CREATINE KINASE MB FRACTION < 1.0 ng/mL (0.5-3.6)
[2018-04-11 04:00] VITALS: BP 135/62
[2018-04-11] MEDS: SODIUM CHLORIDE 0.9% INJ 3ML FLUSH IVF SCH ×3 (06:00→20:31)
[2018-04-11] MEDS: BLOOD SUGAR DIAGNOSTIC STRIP TEST SCH ×4 (07:12→20:31)
[2018-04-11 08:00] VITALS: BP 125/67
[2018-04-11] MEDS: INSULIN LISPRO 100 UNITS/ML SUBCUT SCH ×4 (08:10→20:31)
[2018-04-11] MEDS ORDERED: LIDOCAINE HCL 1% 20ML VIAL (Pyxis) INJ ONE ×2 (09:10→10:24)
[2018-04-11] MEDS ORDERED: SODIUM BICARBONATE 4% (2.4MEQ) 5ML VIAL IV ONE (10:23)
[2018-04-11 12:00] VITALS: BP 140/96
[2018-04-11] MEDS: PANTOPRAZOLE SODIUM 40 MG/VIAL IV SCH ×2 (12:37→17:00)
[2018-04-11] MEDS: HYDROMORPHONE HCL/PF 2MG/ML CPJ IV PRN ×2 (12:38→20:59)
[2018-04-11] MEDS: METOCLOPRAMIDE HCL 10MG/2ML VIAL IV PRN (14:57)
[2018-04-11 15:19] LABS: BASOPHILS % 0.2 % (0.0-2.0); CHLORIDE 106 mEq/L (98-107); EOSINOPHILS % 0.2 % (0.0-5.0); HEMOGLOBIN. 12.5 g/dL (12.0-16.0); MEAN CORPUSCULAR HEMOGLOBIN 29.6 pg (28.0-32.0); MEAN CORPUSCULAR VOLUME 87.7 fL (81.0-99.0); MEAN PLATELET VOLUME 8.5 fl (7.4-10.4); MONOCYTES % 8.9 % (2.0-8.0); NEUTROPHILS % 64.7 % (40.0-76.0); PLATELET 170 x1000/uL (130-400); RED BLOOD CELL COUNT 4.22 mill/uL (4.2-5.4); RED CELL DISTRIBUTION WIDTH 14.5 % (11.6-14.6)
[2018-04-11 15:30] LABS: CREATINE KINASE 64 IU/L (26-192)
[2018-04-11 15:31] LABS: T4 FREE 1.11 ng/dL (0.76-1.46)
[2018-04-11 15:33] LABS: CREATINE KINASE MB FRACTION < 1.0 ng/mL (0.5-3.6)
[2018-04-11 16:00] VITALS: BP 149/97
[2018-04-11 20:00] VITALS: BP 141/88
[2018-04-12] VITALS: BP 131/81
[2018-04-12] MEDS: METOCLOPRAMIDE HCL 10MG/2ML VIAL IV PRN ×3 (01:55→20:37)
[2018-04-12] MEDS: LORAZEPAM 2MG/ML CPJ IV PRN ×2 (02:04→23:37)
[2018-04-12 04:00] VITALS: BP 132/81
[2018-04-12] MEDS: DEXT 5%/0.45% NACL 1000ML 1,000 ML IV SCH ×2 (04:19→16:46)
[2018-04-12] MEDS: BLOOD SUGAR DIAGNOSTIC STRIP TEST SCH ×4 (06:42→20:23)
[2018-04-12] MEDS: SODIUM CHLORIDE 0.9% INJ 3ML FLUSH IVF SCH ×3 (06:42→22:00)
[2018-04-12] MEDS: INSULIN LISPRO 100 UNITS/ML SUBCUT SCH ×4 (07:36→20:23)
[2018-04-12 08:00] VITALS: BP_SYST 115; BP_SYST 134; BP_DIAS 55; BP_DIAS 82
[2018-04-12] MEDS: PANTOPRAZOLE SODIUM 40 MG/VIAL IV SCH ×2 (08:04→16:45)
[2018-04-12 11:06] LABS: HEMATOCRIT 37.3 % (36.0-48.0); HEMOGLOBIN 12.4 g/dL (12.0-16.0)
[2018-04-12] MEDS: HYDROMORPHONE HCL/PF 2MG/ML CPJ IV PRN ×2 (11:26→19:56)
[2018-04-12 12:00] VITALS: BP_SYST 119; BP_SYST 150; BP_DIAS 47; BP_DIAS 77
[2018-04-12 16:00] VITALS: BP 140/89
[2018-04-12 20:00] VITALS: BP 136/87
[2018-04-13] VITALS: BP 124/73
[2018-04-13 04:00] VITALS: BP 130/71
[2018-04-13] MEDS: HYDROMORPHONE HCL/PF 2MG/ML CPJ IV PRN (04:21)
[2018-04-13] MEDS: METOCLOPRAMIDE HCL 10MG/2ML VIAL IV PRN (06:11)
[2018-04-13] MEDS: DEXT 5%/0.45% NACL 1000ML 1,000 ML IV SCH (06:11)
[2018-04-13] MEDS: SODIUM CHLORIDE 0.9% INJ 3ML FLUSH IVF SCH (06:12)
[2018-04-13] MEDS: BLOOD SUGAR DIAGNOSTIC STRIP TEST SCH (06:39)
[2018-04-13] MEDS: INSULIN LISPRO 100 UNITS/ML SUBCUT SCH (07:24)
[2018-04-13 08:00] VITALS: BP 142/90
[2018-04-13] MEDS: PANTOPRAZOLE SODIUM 40 MG/VIAL IV SCH (08:45)
[2018-04-13 11:49] LABS: HEMATOCRIT 37.2 % (36.0-48.0); HEMOGLOBIN 12.4 g/dL (12.0-16.0)
[2018-04-13 12:00] VITALS: BP 142/70
[2018-04-13 13:19] VITALS: BP 142/70
== END 2018-04-13 14:06 | disposition home or self-care (01) | DRG 378 ==
LOC: ER 11:10 → 7WST 16:43 → EDBEDREQ 16:46 → ENRESERV 18:35
PROVIDERS: ADMIT Internal Medicine; ATTEND Internal Medicine
PROC: B5181ZA Fluoroscopy of Superior Vena Cava using Low Osmolar Contrast, Guidance (ICD-10-PCS; principal; 2018-04-11)
PROC: 02HV33Z Insertion of Infusion Device into Superior Vena Cava, Percutaneous Approach (ICD-10-PCS; 2018-04-11)
PROC: B548ZZA Ultrasonography of Superior Vena Cava, Guidance (ICD-10-PCS; 2018-04-11)
DX: K92.2 Gastrointestinal hemorrhage, unspecified (principal); K50.90 Crohn's disease, unspecified, without complications; Z68.41 Body mass index [BMI] 40.0-44.9, adult; K52.9 Noninfective gastroenteritis and colitis, unspecified; E11.649 Type 2 diabetes mellitus with hypoglycemia without coma; E11.65 Type 2 diabetes mellitus with hyperglycemia; E66.01 Morbid (severe) obesity due to excess calories; F31.9 Bipolar disorder, unspecified; G40.909 Epilepsy, unspecified, not intractable, without status epilepticus; M54.5 Low back pain; F41.9 Anxiety disorder, unspecified; S09.90XA Unspecified injury of head, initial encounter; I25.10 Atherosclerotic heart disease of native coronary artery without angina pectoris; G89.4 Chronic pain syndrome; I10 Essential (primary) hypertension; J44.9 Chronic obstructive pulmonary disease, unspecified; W01.0XXA Fall on same level from slipping, tripping and stumbling without subsequent striking against object, initial encounter; Y93.89 Activity, other specified; Y92.098 Other place in other non-institutional residence as the place of occurrence of the external cause; Z79.899 Other long term (current) drug therapy; Z86.73 Personal history of transient ischemic attack (TIA), and cerebral infarction without residual deficits; Z90.710 Acquired absence of both cervix and uterus; Y99.8 Other external cause status; Z98.891 History of uterine scar from previous surgery; Z88.8 Allergy status to other drugs, medicaments and biological substances; Z88.6 Allergy status to analgesic agent; Z91.041 Radiographic dye allergy status; Z91.040 Latex allergy status; Z79.1 Long term (current) use of non-steroidal anti-inflammatories (NSAID)
CPT/HCPCS: 36415; 36569; 71045; 74176; 76937; 77001; 80165; 80185; 80305; 82550; 82553; 82962; 84439; 84443; 84484; 84703; 85014; 85018; 96365; 96375; 99285; C1725; C9113; G0482; J1170; J2060; J2270; J2765; J3490; J7030; J7040; J7050

== ENCOUNTER 2018-08-05 20:50 | Inpatient (IN) | payer MEDICARE, MEDICAID ==
[~2018-08-05] VITALS: Ht 165.1 cm; Wt 81.6 kg
[~2018-08-05 20:50] MED LIST changes: -NITR0.4T49 SL
[2018-08-05] MEDS ORDERED: SODIUM CHLORIDE 0.9% 1,000 ML IV ONE (22:18)
[2018-08-05] MEDS ORDERED: MORPHINE SULFATE 4 MG/ML CPJ (NOT FOR IM USE) IV STA (22:18)
[2018-08-05] MEDS ORDERED: METOCLOPRAMIDE HCL 10MG/2ML VIAL IV ONE (22:30)
[2018-08-05 23:10] LABS: CLARITY URINE CLEAR (CLEAR); COLOR URINE YELLOW (YELLOW); KETONES URINE NEGATIVE (NEGATIVE); LEUKOCYTE ESTERASE URINE TRACE (NEGATIVE); NITRITE URINE POSITIVE (NEGATIVE); OCCULT BLOOD URINE TRACE (NEGATIVE); PROTEIN URINE NEGATIVE (NEGATIVE); SPECIFIC GRAVITY URINE 1.021 (1.005-1.030); UROBILINOGEN URINE 0.2 E.U./dL (0.2-1.0)
[2018-08-05 23:54] LABS: BASOPHILS % 0.7 % (0.0-2.0); EOSINOPHILS % 1.2 % (0.0-5.0); HEMATOCRIT. 37.6 % (36.0-48.0); HEMOGLOBIN. 12.7 g/dL (12.0-16.0); LYMPHOCYTES % 27.8 % (20.0-50.0); MEAN CORPUSCULAR HEMOGLOBIN 29.8 pg (28.0-32.0); MEAN CORPUSCULAR VOLUME 88.1 fL (81.0-99.0); MEAN PLATELET VOLUME 8.8 fl (7.4-10.4); MONOCYTES % 4.4 % (2.0-8.0); NEUTROPHILS % 65.9 % (40.0-76.0); PLATELET 196 x1000/uL (130-400); RED BLOOD CELL COUNT 4.27 mill/uL (4.2-5.4); RED CELL DISTRIBUTION WIDTH 14.5 % (11.6-14.6)
[2018-08-05 23:58] LABS: CHLORIDE 109 mEq/L (98-107)
[2018-08-06] LABS: HCG SCREEN NEGATIVE; PARTIAL THROMBOPLASTIN TIME 29.1 sec (23.4-31.0); PROTHROMBIN TIME 9.8 sec (9.6-11.0)
[2018-08-06 00:09] LABS: CARBAMAZEPINE < 0.5 ug/mL (4-12)
[2018-08-06 00:12] LABS: PHENOBARBITAL < 2.1 ug/mL (15.0-40.0)
[2018-08-06] MEDS ORDERED: MORPHINE SULFATE 4 MG/ML CPJ (NOT FOR IM USE) IV ONE (00:30)
[2018-08-06] MEDS ORDERED: CEFTRIAXONE 1 G PREMIX 50 ML IV ONE (01:15)
[2018-08-06] MEDS: SODIUM CHLORIDE 0.9% 1,000 ML IV SCH ×2 (07:22→17:22)
[2018-08-06] MEDS ORDERED: HYDROCODONE/ACETAMINOPHEN 5/325MG TABLET PO PRN (07:30)
[2018-08-06] MEDS ORDERED: ONDANSETRON HCL 4MG/2ML INJ IV PRN (07:30)
[2018-08-06 08:00] VITALS: BP 116/45
[2018-08-06] MEDS: THIAMINE HCL 100MG TABLET PO SCH (08:55)
[2018-08-06 09:45] LABS: CHLORIDE 110 mEq/L (98-107)
[2018-08-06 12:00] VITALS: BP 113/63
[2018-08-06] MEDS ORDERED: MORPHINE SULFATE 4 MG/ML CPJ (NOT FOR IM USE) IV PRN (12:15)
[2018-08-06] MEDS: FERROUS SULFATE 325MG TABLET PO SCH (13:01)
[2018-08-06] MEDS: ENOXAPARIN 40MG/0.4ML SYR SUBCUT SCH (13:01)
[2018-08-06 15:32] VITALS: BP 113/63
[2018-08-06 16:00] VITALS: BP 116/68
[2018-08-06] MEDS: MORPHINE SULFATE 2 MG/ML CPJ (NOT FOR IM USE) IV PRN ×2 (16:51→20:57)
[2018-08-06 20:00] VITALS: BP 131/71
[2018-08-06] MEDS: PHENYTOIN SODIUM EXTENDED 100MG CAPSULE PO SCH (20:54)
[2018-08-06 21:56] LABS: *AMPHETAMINES SCREEN URINE NEGATIVE (NEGATIVE); *BARBITURATES SCREEN URINE NEGATIVE (NEGATIVE); *BENZODIAZEPINES SCREEN URINE NEGATIVE (NEGATIVE); *COCAINE SCREEN URINE NEGATIVE (NEGATIVE); METHADONE URINE SCREEN NEGATIVE (NEGATIVE)
[2018-08-06 21:57] LABS: CANNABINOID URINE SCREEN NEGATIVE (NEGATIVE); PHENCYCLIDINE URINE SCREEN NEGATIVE (NEGATIVE)
[2018-08-06 21:58] LABS: OPIATES URINE SCREEN PRESUMTIVE POSITIVE (NEGATIVE)
[2018-08-06] MEDS ORDERED: CEFTRIAXONE 1 G PREMIX 50 ML IV SCH (22:00)
[2018-08-06] MEDS: LORAZEPAM 2MG/ML CPJ IV PRN (23:18)
[2018-08-07] VITALS: BP 116/69
[2018-08-07] MEDS: SODIUM CHLORIDE 0.9% 1,000 ML IV SCH ×3 (06:36→23:22)
[2018-08-07] MEDS: PHENYTOIN SODIUM EXTENDED 100MG CAPSULE PO SCH ×3 (06:36→20:45)
[2018-08-07 07:52] VITALS: BP 128/72
[2018-08-07] MEDS: FERROUS SULFATE 325MG TABLET PO SCH (08:57)
[2018-08-07] MEDS: THIAMINE HCL 100MG TABLET PO SCH (08:57)
[2018-08-07] MEDS ORDERED: DIVALPROEX SODIUM 500MG ER TABLET PO SCH (09:00)
[2018-08-07] MEDS: ENOXAPARIN 40MG/0.4ML SYR SUBCUT SCH (09:00)
[2018-08-07] MEDS: MORPHINE SULFATE 2 MG/ML CPJ (NOT FOR IM USE) IV PRN ×3 (09:10→20:48)
[2018-08-07] MEDS: LORAZEPAM 2MG/ML CPJ IV PRN ×2 (11:58→21:41)
[2018-08-07] MEDS: GABAPENTIN 100MG CAPSULE PO SCH ×2 (16:23→16:28)
[2018-08-07] MEDS: METOCLOPRAMIDE HCL 10MG/2ML VIAL IV PRN (16:25)
[2018-08-07 16:48] LABS: CHLORIDE 110 mEq/L (98-107)
[2018-08-07] MEDS: ACYCLOVIR 200MG CAPSULE PO SCH (17:00)
[2018-08-07] MEDS: CEFTRIAXONE 1 G PREMIX 50 ML IV SCH (20:45)
[2018-08-07] MEDS ORDERED: PHENYTOIN SODIUM EXTENDED 100MG CAPSULE PO SCH (23:15)
[2018-08-08] VITALS: BP 118/69
[2018-08-08 00:02] LABS: BASOPHILS % 0.8 % (0.0-2.0); EOSINOPHILS % 1.6 % (0.0-5.0); HEMATOCRIT. 37.4 % (36.0-48.0); HEMOGLOBIN. 12.8 g/dL (12.0-16.0); LYMPHOCYTES % 31.2 % (20.0-50.0); MEAN CORPUSCULAR HEMOGLOBIN 29.8 pg (28.0-32.0); MEAN CORPUSCULAR VOLUME 87.1 fL (81.0-99.0); NEUTROPHILS % 61.4 % (40.0-76.0); PLATELET 187 x1000/uL (130-400); RED CELL DISTRIBUTION WIDTH 14.3 % (11.6-14.6)
[2018-08-08] MEDS: MORPHINE SULFATE 2 MG/ML CPJ (NOT FOR IM USE) IV PRN ×4 (02:42→21:48)
[2018-08-08] MEDS: PHENYTOIN SODIUM EXTENDED 100MG CAPSULE PO SCH ×3 (06:00→21:46)
[2018-08-08 08:40] VITALS: BP 116/73
[2018-08-08] MEDS: ACYCLOVIR 200MG CAPSULE PO SCH ×2 (09:00→13:00)
[2018-08-08] MEDS ORDERED: DIPHENHYDRAMINE 25MG CAPSULE PO SCH (09:00)
[2018-08-08] MEDS ORDERED: DIVALPROEX SODIUM 250MG ER TABLET PO SCH (09:00)
[2018-08-08] MEDS: SODIUM CHLORIDE 0.9% 1,000 ML IV SCH (09:22)
[2018-08-08] MEDS: GABAPENTIN 100MG CAPSULE PO SCH ×2 (09:53→13:42)
[2018-08-08] MEDS: DIVALPROEX SODIUM 250MG DR TABLET PO SCH ×2 (09:53→21:47)
[2018-08-08] MEDS: FERROUS SULFATE 325MG TABLET PO SCH (09:54)
[2018-08-08] MEDS: THIAMINE HCL 100MG TABLET PO SCH (09:58)
[2018-08-08] MEDS: ENOXAPARIN 40MG/0.4ML SYR SUBCUT SCH (10:04)
[2018-08-08] MEDS: METOCLOPRAMIDE HCL 10MG/2ML VIAL IV PRN ×2 (11:30→11:44)
[2018-08-08] MEDS: LORAZEPAM 2MG/ML CPJ IV PRN ×3 (11:43→23:40)
[2018-08-08 12:15] VITALS: BP 116/73
[2018-08-08 16:04] VITALS: BP 112/61
[2018-08-08 17:03] LABS: CHLORIDE 109 mEq/L (98-107)
[2018-08-08 17:06] LABS: AMYLASE 53 IU/L (25-115)
[2018-08-08 17:26] LABS: BASOPHILS % 0.4 % (0.0-2.0); EOSINOPHILS % 1.4 % (0.0-5.0); HEMOGLOBIN. 14.1 g/dL (12.0-16.0); LYMPHOCYTES % 35.5 % (20.0-50.0); MEAN CORPUSCULAR HEMOGLOBIN 30.4 pg (28.0-32.0); MEAN CORPUSCULAR VOLUME 88.6 fL (81.0-99.0); MEAN PLATELET VOLUME 9.4 fl (7.4-10.4); MONOCYTES % 3.6 % (2.0-8.0); NEUTROPHILS % 59.1 % (40.0-76.0); PLATELET 110 x1000/uL (130-400); RED BLOOD CELL COUNT 4.63 mill/uL (4.2-5.4); RED CELL DISTRIBUTION WIDTH 14.6 % (11.6-14.6)
[2018-08-08 17:48] LABS: PLATELET ESTIMATE DECREASED
[2018-08-08 20:00] VITALS: BP 134/83
[2018-08-08] MEDS: ATORVASTATIN CALCIUM 10MG TABLET PO SCH (21:46)
[2018-08-08] MEDS: CEFTRIAXONE 1 G PREMIX 50 ML IV SCH (21:46)
[2018-08-09] MEDS: MORPHINE SULFATE 4 MG/ML CPJ (NOT FOR IM USE) IV PRN ×5 (02:03→22:54)
[2018-08-09] MEDS: SODIUM CHLORIDE 0.9% 1,000 ML IV SCH ×2 (02:03→15:22)
[2018-08-09] MEDS: PHENYTOIN SODIUM EXTENDED 100MG CAPSULE PO SCH ×3 (06:43→21:23)
[2018-08-09] MEDS ORDERED: LIDOCAINE HCL 1% 20ML VIAL (Pyxis) INJ ONE (07:40)
[2018-08-09 08:00] VITALS: BP 108/71
[2018-08-09] MEDS: ENOXAPARIN 40MG/0.4ML SYR SUBCUT SCH (09:43)
[2018-08-09] MEDS: DIVALPROEX SODIUM 250MG DR TABLET PO SCH ×2 (09:43→21:23)
[2018-08-09] MEDS: LORAZEPAM 2MG/ML CPJ IV PRN ×2 (10:15→21:23)
[2018-08-09] MEDS: METOCLOPRAMIDE HCL 10MG/2ML VIAL IV PRN ×2 (10:15→18:36)
[2018-08-09 11:08] LABS: BASOPHILS % 0.3 % (0.0-2.0); CHLORIDE 106 mEq/L (98-107); EOSINOPHILS % 1.2 % (0.0-5.0); HEMATOCRIT. 39.8 % (36.0-48.0); HEMOGLOBIN. 13.4 g/dL (12.0-16.0); LYMPHOCYTES % 28.2 % (20.0-50.0); MEAN CORPUSCULAR HEMOGLOBIN 29.8 pg (28.0-32.0); MEAN CORPUSCULAR VOLUME 88.4 fL (81.0-99.0); MEAN PLATELET VOLUME 8.8 fl (7.4-10.4); MONOCYTES % 4.7 % (2.0-8.0); NEUTROPHILS % 65.6 % (40.0-76.0); PLATELET 186 x1000/uL (130-400); RED CELL DISTRIBUTION WIDTH 14.3 % (11.6-14.6)
[2018-08-09 12:00] VITALS: BP 91/57
[2018-08-09 16:00] VITALS: BP 102/62
[2018-08-09 20:03] VITALS: BP 110/64
[2018-08-09] MEDS: CEFTRIAXONE 1 G PREMIX 50 ML IV SCH (21:22)
[2018-08-09] MEDS: ATORVASTATIN CALCIUM 10MG TABLET PO SCH (21:23)
[2018-08-10] VITALS: BP 112/66
[2018-08-10] MEDS: SODIUM CHLORIDE 0.9% 1,000 ML IV SCH (03:38)
[2018-08-10] MEDS: MORPHINE SULFATE 4 MG/ML CPJ (NOT FOR IM USE) IV PRN (03:38)
[2018-08-10] MEDS: METOCLOPRAMIDE HCL 10MG/2ML VIAL IV PRN (04:02)
[2018-08-10 04:43] VITALS: BP 116/60
[2018-08-10] MEDS: PHENYTOIN SODIUM EXTENDED 100MG CAPSULE PO SCH (07:22)
[2018-08-10 08:00] VITALS: BP 115/60
[2018-08-10 09:29] VITALS: BP 115/60
[2018-08-10 13:10] LABS: HIV SCREEN 4G Non Reactive (Non Reactive)
== END 2018-08-10 09:30 | disposition home or self-care (01) | DRG 690 ==
LOC: ER 20:50 → 6WST 08-06 01:28 → ENRESERV 08-06 09:23
PROVIDERS: ADMIT Internal Medicine Nephrology; ATTEND Internal Medicine Nephrology
PROC: 02HV33Z Insertion of Infusion Device into Superior Vena Cava, Percutaneous Approach (ICD-10-PCS; principal; 2018-08-09)
PROC: B5181ZA Fluoroscopy of Superior Vena Cava using Low Osmolar Contrast, Guidance (ICD-10-PCS; 2018-08-09)
PROC: B548ZZA Ultrasonography of Superior Vena Cava, Guidance (ICD-10-PCS; 2018-08-09)
DX: N39.0 Urinary tract infection, site not specified (principal); K50.90 Crohn's disease, unspecified, without complications; E11.9 Type 2 diabetes mellitus without complications; I10 Essential (primary) hypertension; I25.10 Atherosclerotic heart disease of native coronary artery without angina pectoris; J44.9 Chronic obstructive pulmonary disease, unspecified; E86.0 Dehydration; F31.9 Bipolar disorder, unspecified; Z86.69 Personal history of other diseases of the nervous system and sense organs; Z86.73 Personal history of transient ischemic attack (TIA), and cerebral infarction without residual deficits; Z79.899 Other long term (current) drug therapy; Z90.710 Acquired absence of both cervix and uterus; Z98.891 History of uterine scar from previous surgery; Z88.6 Allergy status to analgesic agent; Z88.1 Allergy status to other antibiotic agents; Z91.041 Radiographic dye allergy status; Z91.040 Latex allergy status; Z88.8 Allergy status to other drugs, medicaments and biological substances
CPT/HCPCS: 36415; 36569; 36573; 73110; 74018; 74176; 80048; 80076; 80156; 80165; 80184; 80185; 80305; 82150; 83605; 83735; 83880; 84100; 84443; 84484; 84703; 86140; 87077; 87186; 87389; 96365; 96375; 99285; C1725; C1893; J0696; J1650; J2060; J2270; J2765; J3490; J7030; Q0163

== ENCOUNTER 2018-10-14 00:59 | Emergency (ER) | payer MEDICARE, MEDICAID ==
[~2018-10-14] VITALS: Ht 172.7 cm; Wt 104.0 kg
[~2018-10-14 00:59] MED LIST changes: -LIDOCAINE PATCH *; -TRAZ-213 PO
[2018-10-14 01:03] VITALS: BP 153/96
== END 2018-10-14 02:10 | disposition left against medical advice (07) ==
LOC: ER 01:51
DX: M54.9 Dorsalgia, unspecified (principal); Z53.21 Procedure and treatment not carried out due to patient leaving prior to being seen by health care provider

== ENCOUNTER 2019-02-24 06:07 | Inpatient (IN) | payer MEDICARE, MEDICAID ==
[~2019-02-24] VITALS: Ht 167.6 cm; Wt 111.6 kg
[~2019-02-24 06:07] MED LIST changes: -ACET-2178 PO; +TOPUD PO
[2019-02-24] MEDS ORDERED: METHYLPREDNISOLONE SOD SUCC 125 MG/2 ML VIAL IV STA (06:22)
[2019-02-24] MEDS ORDERED: ALBUTEROL (0.083%) 2.5MG/3ML NEB HHN STA (06:22)
[2019-02-24] MEDS ORDERED: PROPOFOL 10MG/ML 100ML 100 ML IV SCH ×2 (07:00→10:15)
[2019-02-24] MEDS ORDERED: MIDAZOLAM HCL 50 MG in DEXTROSE 5% WATER 40 ML IV ONE ×7 (07:00→22:15)
[2019-02-24] MEDS ORDERED: ETOMIDATE 2MG/ML 10ML VIAL IV ONE (07:00)
[2019-02-24] MEDS ORDERED: MIDAZOLAM HCL 2 MG/2 ML VIAL IV ONE (07:00)
[2019-02-24 07:10] LABS: BASOPHILS % 0.2 % (0.0-2.0); EOSINOPHILS % 0.3 % (0.0-5.0); HEMATOCRIT. 37.8 % (36.0-48.0); HEMOGLOBIN. 12.6 g/dL (12.0-16.0); LYMPHOCYTES % 32.4 % (20.0-50.0); MEAN CORPUSCULAR HEMOGLOBIN 29.9 pg (28.0-32.0); MEAN CORPUSCULAR VOLUME 89.8 fL (81.0-99.0); MEAN PLATELET VOLUME 8.1 fl (7.4-10.4); MONOCYTES % 4.8 % (2.0-8.0); NEUTROPHILS % 62.3 % (40.0-76.0); PLATELET 220 x1000/uL (130-400); RED BLOOD CELL COUNT 4.21 mill/uL (4.2-5.4); RED CELL DISTRIBUTION WIDTH 16.1 % (11.6-14.6)
[2019-02-24 07:14] LABS: CHLORIDE 110 mEq/L (98-107)
[2019-02-24 07:18] LABS: ETHANOL BLOOD < 10 mg/dL
[2019-02-24] MEDS: GABAPENTIN 300MG CAPSULE PO SCH (07:39)
[2019-02-24 08:49] LABS: BG BASE EXCESS -3.1 mmol/L (-2.0-2.0); BG CARBOXYHEMOGLOBIN 0.6 % (0.5-1.5); BG DEOXYHEMOGLOBIN 0.5 % (0.0-5.0); BG FRACTION INSPIRED OXYGEN 100; BG HCO3 ACT 22.3 mmol/L (22.0-26.0); BG METHEMOGLOBIN 0.3 % (0.0-1.5); BG OXYGEN SATURATION 99.5 % (92.0-98.5); BG OXYHEMOGLOBIN 98.6 % (94.0-97.0); BG PCO2 41.7 mmHg (35.0-45.0); BG PH 7.347 (7.350-7.450); BG PO2 337.6 mmHg (75.0-100.0); BG SAMPLE SITE LEFT BRACHIAL; BG TIDAL VOLUME(mL) 500 mL; BG VENT MODE VENT - A/C; BG VENT RATE 16 set
[2019-02-24] MEDS ORDERED: VANCOMYCIN 1 G PREMIX 200 ML IV ONE (10:00)
[2019-02-24] MEDS ORDERED: PIPERACILLIN/TAZ 3.375G PREMIX 50 ML IV ONE ×2 (10:00→11:45)
[2019-02-24] MEDS ORDERED: DIPHENHYDRAMINE 50MG/ML VIAL IV PRN (11:45)
[2019-02-24] MEDS ORDERED: ENOXAPARIN 40MG/0.4ML SYR SUBCUT SCH (11:45)
[2019-02-24] MEDS ORDERED: IPRATROPIUM/ALBUTEROL 0.5-3(2.5)MG/3ML NEB HHN SCH (11:45)
[2019-02-24] MEDS ORDERED: DOCUSATE SODIUM 100MG CAPSULE PO PRN (11:45)
[2019-02-24] MEDS ORDERED: ACETAMINOPHEN 325MG TABLET NG PRN (11:45)
[2019-02-24] MEDS ORDERED: CLONIDINE 0.1MG TABLET PO PRN (11:45)
[2019-02-24] MEDS ORDERED: ONDANSETRON HCL 4MG/2ML INJ IV PRN (11:45)
[2019-02-24] MEDS ORDERED: METOCLOPRAMIDE HCL 10MG/2ML VIAL IV PRN (11:45)
[2019-02-24] MEDS: DEXT 5%/0.45% NACL KCL 20MEQ/L 1,000 ML IV SCH (12:35)
[2019-02-24] MEDS ORDERED: FENTANYL CITRATE/PF 500 MCG in SODIUM CHLORIDE 0.9% 40 ML IV PRN (12:45)
[2019-02-24 15:59] LABS: VALPROIC ACID < 3.0 ug/mL (50-100)
[2019-02-24] MEDS ORDERED: METHYLPREDNISOLONE SOD SUCC 125 MG/2 ML VIAL IV NR (16:45)
[2019-02-24] MEDS ORDERED: AZITHROMYCIN 500 MG in DEXT 5% WATER 250 ML IV NR (17:00)
[2019-02-24] MEDS ORDERED: CEFTRIAXONE 1 G PREMIX 50 ML IV NR (17:00)
[2019-02-24 17:14] LABS: CLARITY URINE CLEAR (CLEAR); COLOR URINE YELLOW (YELLOW); KETONES URINE NEGATIVE (NEGATIVE); LEUKOCYTE ESTERASE URINE NEGATIVE (NEGATIVE); NITRITE URINE NEGATIVE (NEGATIVE); OCCULT BLOOD URINE NEGATIVE (NEGATIVE); PH URINE 5.5 (4.5-8.0); PROTEIN URINE TRACE (NEGATIVE); SPECIFIC GRAVITY URINE 1.028 (1.005-1.030); UROBILINOGEN URINE 0.2 E.U./dL (0.2-1.0)
[2019-02-24 17:26] LABS: *AMPHETAMINES SCREEN URINE NEGATIVE (NEGATIVE); *BARBITURATES SCREEN URINE NEGATIVE (NEGATIVE); *COCAINE SCREEN URINE NEGATIVE (NEGATIVE)
[2019-02-24 17:27] LABS: CANNABINOID URINE SCREEN NEGATIVE (NEGATIVE); METHADONE URINE SCREEN NEGATIVE (NEGATIVE); PHENCYCLIDINE URINE SCREEN NEGATIVE (NEGATIVE)
[2019-02-24 17:30] LABS: *BENZODIAZEPINES SCREEN URINE PRESUMTIVE POSITIVE (NEGATIVE); OPIATES URINE SCREEN PRESUMTIVE POSITIVE (NEGATIVE)
[2019-02-24] MEDS ORDERED: FUROSEMIDE 20MG/2ML VIAL IVP NR (19:45)
[2019-02-25] VITALS (23 sets, daily range): BP systolic 120–179; BP diastolic 59–99
[2019-02-25] MEDS ORDERED: METHYLPREDNISOLONE SOD SUCC 40 MG/ML VIAL IV SCH (01:00)
[2019-02-25] MEDS: MIDAZOLAM HCL 50 MG in DEXTROSE 5% WATER 40 ML IV PRN ×3 (01:07→16:58)
[2019-02-25 05:27] LABS: BASOPHILS % 0.1 % (0.0-2.0); HEMATOCRIT. 38.8 % (36.0-48.0); HEMOGLOBIN. 12.9 g/dL (12.0-16.0); LYMPHOCYTES % 11.5 % (20.0-50.0); MEAN CORPUSCULAR HEMOGLOBIN 30.3 pg (28.0-32.0); MEAN CORPUSCULAR VOLUME 90.8 fL (81.0-99.0); MEAN PLATELET VOLUME 8.2 fl (7.4-10.4); MONOCYTES % 2.8 % (2.0-8.0); NEUTROPHILS % 85.6 % (40.0-76.0); PLATELET 192 x1000/uL (130-400); RED BLOOD CELL COUNT 4.27 mill/uL (4.2-5.4); RED CELL DISTRIBUTION WIDTH 16.4 % (11.6-14.6)
[2019-02-25 05:34] LABS: CHLORIDE 109 mEq/L (98-107)
[2019-02-25 05:44] LABS: PHOSPHORUS 3.8 mg/dL (2.5-4.9)
[2019-02-25] MEDS: PROPOFOL 10MG/ML 100ML 100 ML IV PRN ×2 (07:10→10:28)
[2019-02-25 08:19] LABS: BG BASE EXCESS 1.3 mmol/L (-2.0-2.0); BG CARBOXYHEMOGLOBIN 0.6 % (0.5-1.5); BG FRACTION INSPIRED OXYGEN 50; BG HCO3 ACT 25.1 mmol/L (22.0-26.0); BG METHEMOGLOBIN 0.3 % (0.0-1.5); BG OXYHEMOGLOBIN 97.1 % (94.0-97.0); BG PCO2 37.1 mmHg (35.0-45.0); BG PH 7.449 (7.350-7.450); BG PO2 104.3 mmHg (75.0-100.0); BG SAMPLE SITE LEFT RADIAL; BG TIDAL VOLUME(mL) 500 mL; BG TOTAL HEMOGLOBIN 13.2 g/dL (12.0-18.0); BG VENT MODE VENT - A/C; BG VENT RATE 16 set
[2019-02-25] MEDS ORDERED: FUROSEMIDE 20MG/2ML VIAL IVP SCH (09:00)
[2019-02-25] MEDS: GABAPENTIN 300MG CAPSULE PO SCH (09:00)
[2019-02-25] MEDS ORDERED: METHYLPREDNISOLONE SOD SUCC 40 MG/ML VIAL IV NR (11:15)
[2019-02-25] MEDS ORDERED: MIDAZOLAM HCL 50 MG in DEXTROSE 5% WATER 40 ML IV PRN (13:00)
[2019-02-25] MEDS ORDERED: FENTANYL CITRATE/PF 500 MCG in SODIUM CHLORIDE 0.9% 40 ML IV PRN (13:30)
[2019-02-25] MEDS ORDERED: DOCUSATE SODIUM SUGAR FREE 100MG/10ML UDC NG PRN (13:30)
[2019-02-25] MEDS: FENTANYL CITRATE/PF 500 MCG in SODIUM CHLORIDE 0.9% 40 ML IV PRN ×2 (14:42→18:28)
[2019-02-25] MEDS: VALPROATE SODIUM 250MG/5ML UDC NG SCH ×3 (15:13→21:34)
[2019-02-25] MEDS: POTASSIUM CHLORIDE 20MEQ/PACKET NG SCH (15:14)
[2019-02-25] MEDS: IPRATROPIUM/ALBUTEROL 0.5-3(2.5)MG/3ML NEB HHN SCH ×2 (16:00→20:51)
[2019-02-25] MEDS ORDERED: CEFTRIAXONE 1 G PREMIX 50 ML IV SCH (16:00)
[2019-02-25] MEDS ORDERED: NITROGLYCERIN OINT 1GM/INCH UDPKT TD PRN (16:45)
[2019-02-25] MEDS ORDERED: AZITHROMYCIN 500 MG in DEXT 5% WATER 250 ML IV SCH (17:00)
[2019-02-25] MEDS: METHYLPREDNISOLONE SOD SUCC 40 MG/ML VIAL IV SCH (17:35)
[2019-02-25] MEDS: DEXT 5%/0.45% NACL KCL 20MEQ/L 1,000 ML IV SCH (17:35)
[2019-02-25 18:33] LABS: BG BASE EXCESS 0.9 mmol/L (-2.0-2.0); BG CARBOXYHEMOGLOBIN 0.7 % (0.5-1.5); BG DEOXYHEMOGLOBIN 2.5 % (0.0-5.0); BG FRACTION INSPIRED OXYGEN 40; BG HCO3 ACT 24.5 mmol/L (22.0-26.0); BG METHEMOGLOBIN 0.2 % (0.0-1.5); BG OXYGEN SATURATION 97.5 % (92.0-98.5); BG OXYHEMOGLOBIN 96.6 % (94.0-97.0); BG PH 7.451 (7.350-7.450); BG PO2 96.1 mmHg (75.0-100.0); BG SAMPLE SITE RIGHT RADIAL; BG TIDAL VOLUME(mL) 500 mL; BG TOTAL HEMOGLOBIN 12.7 g/dL (12.0-18.0); BG VENT MODE VENT - A/C; BG VENT RATE 16 set
[2019-02-25] MEDS: GABAPENTIN SOLN 50MG/1ML UDC NG SCH (20:28)
[2019-02-25] MEDS: ENOXAPARIN 30MG/0.3ML SYR SUBCUT SCH (20:28)
[2019-02-26] VITALS (37 sets, daily range): BP systolic 110–148; BP diastolic 50–95
[2019-02-26] MEDS: MIDAZOLAM HCL 50 MG in DEXTROSE 5% WATER 40 ML IV PRN ×2 (00:10→05:22)
[2019-02-26] MEDS: FENTANYL CITRATE/PF 500 MCG in SODIUM CHLORIDE 0.9% 40 ML IV PRN ×2 (00:11→05:22)
[2019-02-26] MEDS: IPRATROPIUM/ALBUTEROL 0.5-3(2.5)MG/3ML NEB HHN SCH ×6 (00:30→20:47)
[2019-02-26 06:12] LABS: BASOPHILS % 0.2 % (0.0-2.0); EOSINOPHILS % 0.1 % (0.0-5.0); HEMATOCRIT. 35.8 % (36.0-48.0); HEMOGLOBIN. 11.9 g/dL (12.0-16.0); LYMPHOCYTES % 18.7 % (20.0-50.0); MEAN CORPUSCULAR HEMOGLOBIN 30.3 pg (28.0-32.0); MEAN CORPUSCULAR VOLUME 90.8 fL (81.0-99.0); MEAN PLATELET VOLUME 8.3 fl (7.4-10.4); MONOCYTES % 2.8 % (2.0-8.0); NEUTROPHILS % 78.2 % (40.0-76.0); PLATELET 162 x1000/uL (130-400); RED BLOOD CELL COUNT 3.94 mill/uL (4.2-5.4); RED CELL DISTRIBUTION WIDTH 16.1 % (11.6-14.6)
[2019-02-26 06:29] LABS: CHLORIDE 109 mEq/L (98-107)
[2019-02-26] MEDS: METHYLPREDNISOLONE SOD SUCC 40 MG/ML VIAL IV SCH ×2 (06:31→17:27)
[2019-02-26] MEDS: VALPROATE SODIUM 250MG/5ML UDC NG SCH ×3 (06:31→22:26)
[2019-02-26] MEDS: FUROSEMIDE 20MG/2ML VIAL IVP SCH (08:23)
[2019-02-26] MEDS: ENOXAPARIN 30MG/0.3ML SYR SUBCUT SCH ×2 (08:23→20:50)
[2019-02-26] MEDS: POTASSIUM CHLORIDE 20MEQ/PACKET NG SCH (08:24)
[2019-02-26] MEDS: PANTOPRAZOLE SODIUM 40 MG/VIAL IV SCH (08:24)
[2019-02-26] MEDS: GABAPENTIN SOLN 50MG/1ML UDC NG SCH ×3 (09:00→18:15)
[2019-02-26 09:02] LABS: BG BASE EXCESS -0.1 mmol/L (-2.0-2.0); BG CARBOXYHEMOGLOBIN 0.5 % (0.5-1.5); BG DEOXYHEMOGLOBIN 2.6 % (0.0-5.0); BG FRACTION INSPIRED OXYGEN 40; BG METHEMOGLOBIN 0.1 % (0.0-1.5); BG OXYGEN SATURATION 97.4 % (92.0-98.5); BG OXYHEMOGLOBIN 96.8 % (94.0-97.0); BG PCO2 37.5 mmHg (35.0-45.0); BG PH 7.424 (7.350-7.450); BG PO2 102.1 mmHg (75.0-100.0); BG SAMPLE SITE RIGHT RADIAL; BG TIDAL VOLUME(mL) 500 mL; BG TOTAL HEMOGLOBIN 12.9 g/dL (12.0-18.0); BG VENT MODE VENT - A/C; BG VENT RATE 16 set
[2019-02-26] MEDS ORDERED: ACETAMINOPHEN 650MG/20.3ML UDC NG PRN (09:15)
[2019-02-26] MEDS: AMLODIPINE 5MG TABLET NG SCH ×2 (10:37→20:49)
[2019-02-26] MEDS ORDERED: PHENYTOIN SODIUM 1,000 MG in SODIUM CHLORIDE 0.9% 100 ML IV NR (11:00)
[2019-02-26 12:53] LABS: BG BASE EXCESS 1.5 mmol/L (-2.0-2.0); BG CARBOXYHEMOGLOBIN 1.1 % (0.5-1.5); BG DEOXYHEMOGLOBIN 4.1 % (0.0-5.0); BG FRACTION INSPIRED OXYGEN 40; BG HCO3 ACT 26.3 mmol/L (22.0-26.0); BG METHEMOGLOBIN 0.2 % (0.0-1.5); BG OXYGEN SATURATION 95.8 % (92.0-98.5); BG OXYHEMOGLOBIN 94.6 % (94.0-97.0); BG PCO2 42.1 mmHg (35.0-45.0); BG PH 7.413 (7.350-7.450); BG PO2 82.3 mmHg (75.0-100.0); BG PRESSURE SUPPORT 8; BG SAMPLE SITE RIGHT RADIAL; BG TOTAL HEMOGLOBIN 13.9 g/dL (12.0-18.0); BG VENT MODE VENT - CPAP
[2019-02-26] MEDS ORDERED: CEFTRIAXONE 1 G PREMIX 50 ML IV SCH (13:00)
[2019-02-26] MEDS ORDERED: VALPROATE SODIUM 250MG/5ML UDC NG SCH (14:00)
[2019-02-26] MEDS ORDERED: AZITHROMYCIN 500 MG in DEXT 5% WATER 250 ML IV SCH (14:00)
[2019-02-26] MEDS: PHENYTOIN 100 MG/4 ML UDC NG SCH ×2 (14:15→22:39)
[2019-02-26] MEDS: ATORVASTATIN CALCIUM 10MG TABLET PO SCH ×4 (20:50→22:27)
[2019-02-27] VITALS (17 sets, daily range): BP systolic 98–146; BP diastolic 43–82
[2019-02-27] MEDS: IPRATROPIUM/ALBUTEROL 0.5-3(2.5)MG/3ML NEB HHN SCH ×2 (01:52→08:38)
[2019-02-27] MEDS ORDERED: BLOOD SUGAR DIAGNOSTIC STRIP TEST SCH (06:00)
[2019-02-27 06:15] LABS: BASOPHILS % 0.3 % (0.0-2.0); HEMATOCRIT. 36.6 % (36.0-48.0); HEMOGLOBIN. 12.2 g/dL (12.0-16.0); LYMPHOCYTES % 19.1 % (20.0-50.0); MEAN CORPUSCULAR HEMOGLOBIN 30.1 pg (28.0-32.0); MEAN CORPUSCULAR VOLUME 90.5 fL (81.0-99.0); MEAN PLATELET VOLUME 8.4 fl (7.4-10.4); MONOCYTES % 3.9 % (2.0-8.0); NEUTROPHILS % 76.7 % (40.0-76.0); PLATELET 174 x1000/uL (130-400); RED BLOOD CELL COUNT 4.05 mill/uL (4.2-5.4); RED CELL DISTRIBUTION WIDTH 15.9 % (11.6-14.6)
[2019-02-27 06:22] LABS: CHLORIDE 104 mEq/L (98-107)
[2019-02-27] MEDS: VALPROATE SODIUM 250MG/5ML UDC NG SCH (06:44)
[2019-02-27] MEDS: METHYLPREDNISOLONE SOD SUCC 40 MG/ML VIAL IV SCH (06:44)
[2019-02-27] MEDS: PHENYTOIN 100 MG/4 ML UDC NG SCH (06:44)
[2019-02-27] MEDS: ENOXAPARIN 30MG/0.3ML SYR SUBCUT SCH (08:07)
[2019-02-27] MEDS: FUROSEMIDE 20MG/2ML VIAL IVP SCH (08:07)
[2019-02-27] MEDS: GABAPENTIN SOLN 50MG/1ML UDC NG SCH (08:07)
[2019-02-27] MEDS: AMLODIPINE 5MG TABLET NG SCH (08:08)
[2019-02-27] MEDS: POTASSIUM CHLORIDE 20MEQ/PACKET NG SCH (08:10)
[2019-02-27] MEDS: PANTOPRAZOLE SODIUM 40 MG/VIAL IV SCH (08:12)
[2019-02-27 08:32] LABS: BG BASE EXCESS 4.4 mmol/L (-2.0-2.0); BG DEOXYHEMOGLOBIN 3.1 % (0.0-5.0); BG FRACTION INSPIRED OXYGEN 35; BG HCO3 ACT 29.5 mmol/L (22.0-26.0); BG METHEMOGLOBIN 0.3 % (0.0-1.5); BG OXYGEN SATURATION 96.9 % (92.0-98.5); BG OXYHEMOGLOBIN 95.6 % (94.0-97.0); BG PCO2 45.5 mmHg (35.0-45.0); BG PH 7.429 (7.350-7.450); BG PO2 90.9 mmHg (75.0-100.0); BG SAMPLE SITE RIGHT RADIAL; BG TOTAL HEMOGLOBIN 14.2 g/dL (12.0-18.0); BG VENT MODE MASK - AEROSOL
[2019-02-27] MEDS ORDERED: THROAT LOZENGES-BENZOCAINE/MENTH/CETYLPYRD CL LOZENGES MM PRN (12:00)
== END 2019-02-27 11:21 | disposition left against medical advice (07) | DRG 871 ==
LOC: ER 06:07 → EDBEDREQ 08:59 → EDBEDREQSVC 08:59 → EDBEDREQTM 08:59 → CVICU 02-25 08:57 → ENRESERV 02-25 11:34
PROVIDERS: ADMIT Internal Medicine Geriatric Medicine; ATTEND Internal Medicine Geriatric Medicine
PROC: 5A1945Z Respiratory Ventilation, 24-96 Consecutive Hours (ICD-10-PCS; principal; 2019-02-24)
PROC: 5A09357 Assistance with Respiratory Ventilation, Less than 24 Consecutive Hours, Continuous Positive Airway Pressure (ICD-10-PCS; 2019-02-24)
PROC: 0BH17EZ Insertion of Endotracheal Airway into Trachea, Via Natural or Artificial Opening (ICD-10-PCS; 2019-02-25)
PROC: 02HV33Z Insertion of Infusion Device into Superior Vena Cava, Percutaneous Approach (ICD-10-PCS; 2019-02-26)
PROC: B548ZZA Ultrasonography of Superior Vena Cava, Guidance (ICD-10-PCS; 2019-02-26)
DX: A41.9 Sepsis, unspecified organism (principal); J96.01 Acute respiratory failure with hypoxia; G92 Toxic encephalopathy; J18.9 Pneumonia, unspecified organism; J44.0 Chronic obstructive pulmonary disease with (acute) lower respiratory infection; J44.1 Chronic obstructive pulmonary disease with (acute) exacerbation; G81.91 Hemiplegia, unspecified affecting right dominant side; E44.1 Mild protein-calorie malnutrition; J45.901 Unspecified asthma with (acute) exacerbation; K50.90 Crohn's disease, unspecified, without complications; N17.9 Acute kidney failure, unspecified; I13.0 Hypertensive heart and chronic kidney disease with heart failure and stage 1 through stage 4 chronic kidney disease, or unspecified chronic kidney disease; I50.40 Unspecified combined systolic (congestive) and diastolic (congestive) heart failure; E87.2 Acidosis; F11.20 Opioid dependence, uncomplicated; E66.01 Morbid (severe) obesity due to excess calories; E11.22 Type 2 diabetes mellitus with diabetic chronic kidney disease; G40.909 Epilepsy, unspecified, not intractable, without status epilepticus; Z86.73 Personal history of transient ischemic attack (TIA), and cerebral infarction without residual deficits; E87.6 Hypokalemia; F31.9 Bipolar disorder, unspecified; I25.10 Atherosclerotic heart disease of native coronary artery without angina pectoris; E78.5 Hyperlipidemia, unspecified; N18.9 Chronic kidney disease, unspecified; Z79.899 Other long term (current) drug therapy; Z90.710 Acquired absence of both cervix and uterus; Z98.891 History of uterine scar from previous surgery; Z91.19 Patient's noncompliance with other medical treatment and regimen; Z68.39 Body mass index [BMI] 39.0-39.9, adult; Z88.8 Allergy status to other drugs, medicaments and biological substances; Z91.040 Latex allergy status; Z79.01 Long term (current) use of anticoagulants
CPT/HCPCS: 31500; 36415; 36600; 71045; 76937; 78580; 80048; 80165; 80185; 80305; 80320; 81003; 82375; 82805; 82962; 83735; 83880; 84100; 84484; 87070; 87804; 93005; 93306; 93970; 94003; 94640; 96365; 96366; 96368; 96375; 96376; 99291; C1725; C9113; J0456; J0696; J1165; J1200; J1650; J1940; J2250; J2543; J2704; J2920; J2930; J3010; J3370; J7050; J7060; J7620; A4315; G0480

== ENCOUNTER 2019-03-01 22:54 | Emergency (ER) | payer MEDICARE, MEDICAID ==
[~2019-03-01] VITALS: Ht 165.1 cm; Wt 100.0 kg
[2019-03-01 23:27] VITALS: BP 123/72
== END 2019-03-02 02:10 | disposition left against medical advice (07) ==
LOC: ER 22:54
DX: Z53.21 Procedure and treatment not carried out due to patient leaving prior to being seen by health care provider (principal)

== ENCOUNTER 2020-01-03 11:55 | Emergency (ER) | payer MEDICARE, MEDICAID ==
[~2020-01-03] VITALS: Ht 165.1 cm; Wt 100.0 kg
[2020-01-03 11:59] VITALS: BP 149/95
== END 2020-01-03 12:40 | disposition left against medical advice (07) ==
LOC: ER 11:55
DX: M79.10 Myalgia, unspecified site (principal); R19.7 Diarrhea, unspecified; Z53.21 Procedure and treatment not carried out due to patient leaving prior to being seen by health care provider

== ENCOUNTER 2020-01-17 22:23 | Inpatient (IN) | payer MEDICARE, MEDICAID ==
[~2020-01-17] VITALS: Ht 165.1 cm; Wt 115.2 kg
[2020-01-17] MEDS ORDERED: ALBUTEROL (0.083%) 2.5MG/3ML NEB HHN STA (23:23)
[2020-01-17] MEDS ORDERED: METHYLPREDNISOLONE SOD SUCC 125 MG/2 ML VIAL IV STA (23:23)
[2020-01-17] MEDS ORDERED: IPRATROPIUM BROMIDE (0.02%) 0.5MG/2.5ML NEB HHN STA (23:23)
[2020-01-17 23:51] LABS: BG BASE EXCESS 1.4 mmol/L (-2.0-2.0); BG CARBOXYHEMOGLOBIN 0.4 % (0.5-1.5); BG FRACTION INSPIRED OXYGEN 28; BG HCO3 ACT 24.4 mmol/L (22.0-26.0); BG METHEMOGLOBIN 0.1 % (0.0-1.5); BG OXYHEMOGLOBIN 98.5 % (94.0-97.0); BG PCO2 33.9 mmHg (35.0-45.0); BG PH 7.475 (7.350-7.450); BG PO2 150.5 mmHg (75.0-100.0); BG SAMPLE SITE RIGHT RADIAL; BG TOTAL HEMOGLOBIN 14.2 g/dL (12.0-18.0); BG VENT MODE NASAL CANNULA
[2020-01-18] MEDS ORDERED: LORAZEPAM 1MG TABLET PO SCH (01:30)
[2020-01-18 05:30] VITALS: BP 121/59
[2020-01-18 08:00] VITALS: BP 127/76
[2020-01-18] MEDS ORDERED: DIPHENHYDRAMINE 50MG/ML VIAL IV PRN (08:00)
[2020-01-18] MEDS ORDERED: ENOXAPARIN 40MG/0.4ML SYR SUBCUT SCH (08:00)
[2020-01-18] MEDS ORDERED: CLONIDINE 0.1MG TABLET PO PRN (08:00)
[2020-01-18] MEDS ORDERED: ACETAMINOPHEN 325MG TABLET PO PRN (08:00)
[2020-01-18] MEDS: METHYLPREDNISOLONE SOD SUCC 125 MG/2 ML VIAL IV SCH ×3 (10:22→18:07)
[2020-01-18 12:00] VITALS: BP 126/79
[2020-01-18] MEDS: LORAZEPAM 1MG TABLET PO PRN ×2 (12:24→22:48)
[2020-01-18] MEDS: HYDROCODONE/ACETAMINOPHEN 5/325MG TABLET PO PRN (12:58)
[2020-01-18] MEDS ORDERED: DEXTROSE 50% WATER 50ML SYRINGE IV PRN (13:00)
[2020-01-18] MEDS ORDERED: NITROGLYCERIN 0.4MG TABLET SL SL PRN (13:45)
[2020-01-18] MEDS ORDERED: SUMATRIPTAN SUCCINATE 25MG TABLET PO PRN (14:00)
[2020-01-18 14:17] LABS: HEMOGLOBIN. 13.6 g/dL (12.0-16.0); MEAN CORPUSCULAR HEMOGLOBIN 30.4 pg (28.0-32.0); MEAN CORPUSCULAR VOLUME 92.1 fL (81.0-99.0); MEAN PLATELET VOLUME 8.1 fl (7.4-10.4); PLATELET 175 x1000/uL (130-400); RED BLOOD CELL COUNT 4.46 mill/uL (4.2-5.4); RED CELL DISTRIBUTION WIDTH 15.5 % (11.6-14.6)
[2020-01-18 14:21] LABS: CHLORIDE 103 mEq/L (98-107)
[2020-01-18 16:00] VITALS: BP 127/71
[2020-01-18 16:55] LABS: PLATELET ESTIMATE NORMAL
[2020-01-18] MEDS: INSULIN LISPRO 100 UNITS/ML SUBCUT SCH ×2 (17:13→21:23)
[2020-01-18] MEDS: BLOOD SUGAR DIAGNOSTIC STRIP TEST SCH ×2 (17:13→21:27)
[2020-01-18 17:53] LABS: BASOPHILS % 0.9 % (0.0-2.0); HEMATOCRIT. 40.9 % (36.0-48.0); HEMOGLOBIN. 13.5 g/dL (12.0-16.0); LYMPHOCYTES % 7.5 % (20.0-50.0); MEAN CORPUSCULAR HEMOGLOBIN 30.6 pg (28.0-32.0); MEAN CORPUSCULAR VOLUME 92.4 fL (81.0-99.0); MEAN PLATELET VOLUME 8.8 fl (7.4-10.4); MONOCYTES % 1.9 % (2.0-8.0); NEUTROPHILS % 89.7 % (40.0-76.0); PLATELET 174 x1000/uL (130-400); RED BLOOD CELL COUNT 4.43 mill/uL (4.2-5.4); RED CELL DISTRIBUTION WIDTH 15.8 % (11.6-14.6)
[2020-01-18] MEDS: GABAPENTIN 300MG CAPSULE PO SCH (18:06)
[2020-01-18] MEDS: DIPHENHYDRAMINE 25MG CAPSULE PO SCH (18:07)
[2020-01-18] MEDS: MONTELUKAST SODIUM 10MG TABLET PO SCH (18:07)
[2020-01-18 18:19] LABS: HCG SCREEN NEGATIVE
[2020-01-18] MEDS ORDERED: GUAIFENESIN-DM 200MG-20MG/10ML UDC PO PRN (18:45)
[2020-01-18] MEDS: FAMOTIDINE 20MG TABLET PO SCH (21:25)
[2020-01-18] MEDS: ENOXAPARIN 30MG/0.3ML SYR SUBCUT SCH (21:26)
[2020-01-18] MEDS: ATORVASTATIN CALCIUM 10MG TABLET PO SCH (21:26)
[2020-01-18 22:27] VITALS: BP 140/88
[2020-01-18] MEDS: MORPHINE SULFATE 2 MG/ML CPJ (NOT FOR IM USE) IV PRN (22:47)
[2020-01-19] VITALS: BP 134/80
[2020-01-19] MEDS: METHYLPREDNISOLONE SOD SUCC 125 MG/2 ML VIAL IV SCH ×3 (00:56→18:08)
[2020-01-19] MEDS: HYDROCODONE/ACETAMINOPHEN 5/325MG TABLET PO PRN ×2 (01:02→09:18)
[2020-01-19 04:00] VITALS: BP 128/72
[2020-01-19] MEDS: MORPHINE SULFATE 2 MG/ML CPJ (NOT FOR IM USE) IV PRN ×3 (04:26→18:09)
[2020-01-19 06:04] LABS: HEMATOCRIT. 41.9 % (36.0-48.0); HEMOGLOBIN. 13.7 g/dL (12.0-16.0); MEAN CORPUSCULAR HEMOGLOBIN 30.2 pg (28.0-32.0); MEAN CORPUSCULAR VOLUME 92.2 fL (81.0-99.0); MEAN PLATELET VOLUME 8.8 fl (7.4-10.4); PLATELET 195 x1000/uL (130-400); RED BLOOD CELL COUNT 4.54 mill/uL (4.2-5.4); RED CELL DISTRIBUTION WIDTH 15.8 % (11.6-14.6)
[2020-01-19 06:16] LABS: CHLORIDE 108 mEq/L (98-107)
[2020-01-19 06:28] LABS: HDL CHOLESTEROL 99 mg/dL (40-59); LDL CHOLESTEROL 176 mg/dL (5-100)
[2020-01-19] MEDS: BLOOD SUGAR DIAGNOSTIC STRIP TEST SCH ×4 (06:56→20:59)
[2020-01-19] MEDS: INSULIN LISPRO 100 UNITS/ML SUBCUT SCH ×4 (06:57→20:59)
[2020-01-19 08:00] VITALS: BP 137/73
[2020-01-19] MEDS: FUROSEMIDE 20MG TABLET PO SCH ×2 (09:00→09:03)
[2020-01-19] MEDS: ENOXAPARIN 30MG/0.3ML SYR SUBCUT SCH (09:02)
[2020-01-19] MEDS: FLUOXETINE HCL 20MG CAPSULE PO SCH (09:03)
[2020-01-19] MEDS: FAMOTIDINE 20MG TABLET PO SCH ×2 (09:03→20:58)
[2020-01-19] MEDS: PHENYTOIN SODIUM EXTENDED 100MG CAPSULE PO SCH (09:03)
[2020-01-19] MEDS: GABAPENTIN 300MG CAPSULE PO SCH ×3 (09:03→18:08)
[2020-01-19] MEDS: QUETIAPINE FUMARATE 50MG TABLET PO SCH (09:03)
[2020-01-19] MEDS: DIPHENHYDRAMINE 25MG CAPSULE PO SCH ×2 (09:03→18:08)
[2020-01-19] MEDS: DIVALPROEX SODIUM 500MG ER TABLET PO SCH (09:03)
[2020-01-19 12:00] VITALS: BP 129/70
[2020-01-19] MEDS ORDERED: ENOXAPARIN 80MG/0.8ML SYR SUBCUT NR (14:45)
[2020-01-19 15:38] LABS: PHOSPHORUS 2.1 mg/dL (2.5-4.9)
[2020-01-19] MEDS: ASPIRIN 325MG EC TABLET PO SCH (15:54)
[2020-01-19] MEDS: DILTIAZEM HCL 30MG TABLET PO SCH ×2 (15:54→23:09)
[2020-01-19 16:00] VITALS: BP 122/63
[2020-01-19 16:58] LABS: PLATELET ESTIMATE NORMAL
[2020-01-19] MEDS: MONTELUKAST SODIUM 10MG TABLET PO SCH (18:08)
[2020-01-19 20:00] VITALS: BP 123/67
[2020-01-19] MEDS: IPRATROPIUM/ALBUTEROL 0.5-3(2.5)MG/3ML NEB HHN PRN (20:42)
[2020-01-19] MEDS: ATORVASTATIN CALCIUM 10MG TABLET PO SCH (20:58)
[2020-01-19] MEDS ORDERED: DIPHENHYDRAMINE 25MG CAPSULE PO NR (21:00)
[2020-01-19] MEDS ORDERED: ENOXAPARIN 100MG/ML SYR SUBCUT NR (21:00)
[2020-01-19] MEDS: LORAZEPAM 1MG TABLET PO PRN (23:15)
[2020-01-20] VITALS (10 sets, daily range): BP systolic 113–174; BP diastolic 57–83
[2020-01-20] MEDS: METHYLPREDNISOLONE SOD SUCC 125 MG/2 ML VIAL IV SCH ×2 (00:23→08:45)
[2020-01-20] MEDS: MORPHINE SULFATE 2 MG/ML CPJ (NOT FOR IM USE) IV PRN ×3 (00:26→16:05)
[2020-01-20] MEDS: HYDROCODONE/ACETAMINOPHEN 5/325MG TABLET PO PRN (03:25)
[2020-01-20] MEDS: IPRATROPIUM/ALBUTEROL 0.5-3(2.5)MG/3ML NEB HHN PRN (03:33)
[2020-01-20 05:09] LABS: *AMPHETAMINES SCREEN URINE NEGATIVE (NEGATIVE); *BARBITURATES SCREEN URINE NEGATIVE (NEGATIVE); *BENZODIAZEPINES SCREEN URINE NEGATIVE (NEGATIVE); *COCAINE SCREEN URINE NEGATIVE (NEGATIVE); CANNABINOID URINE SCREEN NEGATIVE (NEGATIVE)
[2020-01-20 05:11] LABS: METHADONE URINE SCREEN NEGATIVE (NEGATIVE); PHENCYCLIDINE URINE SCREEN NEGATIVE (NEGATIVE)
[2020-01-20 05:17] LABS: OPIATES URINE SCREEN PRESUMTIVE POSITIVE (NEGATIVE)
[2020-01-20] MEDS: DILTIAZEM HCL 30MG TABLET PO SCH ×3 (06:14→22:21)
[2020-01-20] MEDS: BLOOD SUGAR DIAGNOSTIC STRIP TEST SCH ×4 (06:30→19:42)
[2020-01-20] MEDS: INSULIN LISPRO 100 UNITS/ML SUBCUT SCH ×4 (06:31→21:00)
[2020-01-20 07:36] LABS: CHLORIDE 106 mEq/L (98-107)
[2020-01-20 07:37] LABS: PROTHROMBIN TIME 10.3 sec (9.6-11.0)
[2020-01-20 07:38] LABS: HEMATOCRIT. 36.8 % (36.0-48.0); HEMOGLOBIN. 12.2 g/dL (12.0-16.0); MEAN CORPUSCULAR HEMOGLOBIN 30.5 pg (28.0-32.0); MEAN CORPUSCULAR VOLUME 92.1 fL (81.0-99.0); MEAN PLATELET VOLUME 8.8 fl (7.4-10.4); PLATELET 146 x1000/uL (130-400); RED BLOOD CELL COUNT 3.99 mill/uL (4.2-5.4); RED CELL DISTRIBUTION WIDTH 16.1 % (11.6-14.6)
[2020-01-20] MEDS: FLUOXETINE HCL 20MG CAPSULE PO SCH (08:45)
[2020-01-20] MEDS: GABAPENTIN 300MG CAPSULE PO SCH ×3 (08:45→17:53)
[2020-01-20] MEDS: QUETIAPINE FUMARATE 50MG TABLET PO SCH (08:45)
[2020-01-20] MEDS: ASPIRIN 325MG EC TABLET PO SCH (08:45)
[2020-01-20] MEDS: PHENYTOIN SODIUM EXTENDED 100MG CAPSULE PO SCH (08:45)
[2020-01-20] MEDS: FAMOTIDINE 20MG TABLET PO SCH ×2 (08:45→22:20)
[2020-01-20] MEDS: DIVALPROEX SODIUM 500MG ER TABLET PO SCH (08:45)
[2020-01-20] MEDS: DIPHENHYDRAMINE 25MG CAPSULE PO SCH ×2 (08:45→17:53)
[2020-01-20] MEDS: FUROSEMIDE 20MG TABLET PO SCH (08:46)
[2020-01-20] MEDS ORDERED: MIDAZOLAM HCL 5 MG/5 ML VIAL ONE (09:26)
[2020-01-20] MEDS ORDERED: FENTANYL CITRATE/PF 50MCG/ML 5ML VIAL ONE (09:26)
[2020-01-20] MEDS ORDERED: IODIXANOL 320MG/ML 100 ML BOTTLE IV ONE (09:26)
[2020-01-20] MEDS ORDERED: LIDOCAINE HCL 1% 20ML VIAL (Pyxis) INJ ONE (09:26)
[2020-01-20] MEDS ORDERED: DIPHENHYDRAMINE 50MG/ML VIAL ONE (10:14)
[2020-01-20] MEDS ORDERED: DIPHENHYDRAMINE 50MG/ML VIAL IV SCH (10:20)
[2020-01-20] MEDS ORDERED: ATROPINE SULFATE 1MG/10ML SYR IV PRN (10:45)
[2020-01-20] MEDS ORDERED: ACETAMINOPHEN 325MG TABLET PO PRN (10:45)
[2020-01-20] MEDS ORDERED: *PATIENT'S OWN MEDICATION STORAGE XX SCH (16:00)
[2020-01-20] MEDS ORDERED: IPRATROPIUM BROMIDE (0.02%) 0.5MG/2.5ML NEB HHN SCH (16:00)
[2020-01-20] MEDS: METHYLPREDNISOLONE SOD SUCC 40 MG/ML VIAL IV SCH (17:53)
[2020-01-20] MEDS: MONTELUKAST SODIUM 10MG TABLET PO SCH (17:53)
[2020-01-20 19:02] LABS: PLATELET ESTIMATE NORMAL
[2020-01-20] MEDS: ATORVASTATIN CALCIUM 10MG TABLET PO SCH (22:21)
[2020-01-20] MEDS: LIDOCAINE 5% PATCH TOP SCH (22:24)
[2020-01-20] MEDS ORDERED: HYDROCODONE/ACETAMINOPHEN 5/325MG TABLET PO PRN (23:45)
[2020-01-20] MEDS ORDERED: MORPHINE SULFATE 2 MG/ML CPJ (NOT FOR IM USE) IV PRN (23:45)
[2020-01-21] MEDS: METHYLPREDNISOLONE SOD SUCC 40 MG/ML VIAL IV SCH ×2 (00:07→08:26)
[2020-01-21 00:12] VITALS: BP 127/77
[2020-01-21 01:39] VITALS: BP 101/50
[2020-01-21] MEDS ORDERED: POTASSIUM CHLORIDE 20MEQ/PACKET PO NR (02:52)
[2020-01-21] MEDS: METOPROLOL TARTRATE 25MG TABLET PO SCH ×2 (03:15→08:28)
[2020-01-21 03:32] VITALS: BP 138/72
[2020-01-21 04:32] VITALS: BP 137/77
[2020-01-21 05:32] VITALS: BP 141/78
[2020-01-21] MEDS: BLOOD SUGAR DIAGNOSTIC STRIP TEST SCH (06:05)
[2020-01-21 06:49] LABS: HEMATOCRIT. 36.9 % (36.0-48.0); HEMOGLOBIN. 12.1 g/dL (12.0-16.0); MEAN CORPUSCULAR HEMOGLOBIN 30.5 pg (28.0-32.0); MEAN CORPUSCULAR VOLUME 93.1 fL (81.0-99.0); MEAN PLATELET VOLUME 8.9 fl (7.4-10.4); PLATELET 150 x1000/uL (130-400); RED BLOOD CELL COUNT 3.96 mill/uL (4.2-5.4); RED CELL DISTRIBUTION WIDTH 16.1 % (11.6-14.6)
[2020-01-21 07:04] LABS: CHLORIDE 111 mEq/L (98-107)
[2020-01-21 08:21] VITALS: BP 136/95
[2020-01-21] MEDS: PHENYTOIN SODIUM EXTENDED 100MG CAPSULE PO SCH (08:26)
[2020-01-21] MEDS: ASPIRIN 325MG EC TABLET PO SCH (08:26)
[2020-01-21] MEDS: GABAPENTIN 300MG CAPSULE PO SCH (08:26)
[2020-01-21] MEDS: DIPHENHYDRAMINE 25MG CAPSULE PO SCH (08:26)
[2020-01-21] MEDS: FAMOTIDINE 20MG TABLET PO SCH (08:26)
[2020-01-21] MEDS: DIVALPROEX SODIUM 500MG ER TABLET PO SCH (08:27)
[2020-01-21] MEDS: FLUOXETINE HCL 20MG CAPSULE PO SCH (08:27)
[2020-01-21] MEDS: LIDOCAINE 5% PATCH TOP SCH (08:28)
[2020-01-21] MEDS: FUROSEMIDE 20MG TABLET PO SCH (08:30)
[2020-01-21] MEDS: QUETIAPINE FUMARATE 50MG TABLET PO SCH (08:36)
[2020-01-21] MEDS: INSULIN LISPRO 100 UNITS/ML SUBCUT SCH (08:37)
[2020-01-21 13:46] LABS: PLATELET ESTIMATE NORMAL
== END 2020-01-21 09:35 | disposition left against medical advice (07) | DRG 286 ==
LOC: ER 22:23 → 5WST 01-18 01:24 → EDBEDREQ 01-18 01:26 → EDBEDREQDT 01-18 01:26 → EDBEDREQTM 01-18 01:26 → ENRESERV 01-18 01:53 → 3WST 01-20 10:55
PROVIDERS: ADMIT Internal Medicine; ATTEND Internal Medicine
PROC: 05JY3ZZ Inspection of Upper Vein, Percutaneous Approach (ICD-10-PCS; 2020-01-18)
PROC: 4A023N7 Measurement of Cardiac Sampling and Pressure, Left Heart, Percutaneous Approach (ICD-10-PCS; principal; 2020-01-20)
PROC: B2111ZZ Fluoroscopy of Multiple Coronary Arteries using Low Osmolar Contrast (ICD-10-PCS; 2020-01-20)
PROC: B2151ZZ Fluoroscopy of Left Heart using Low Osmolar Contrast (ICD-10-PCS; 2020-01-20)
PROC: B41F1ZZ Fluoroscopy of Right Lower Extremity Arteries using Low Osmolar Contrast (ICD-10-PCS; 2020-01-20)
DX: I47.2 Ventricular tachycardia (principal); J96.20 Acute and chronic respiratory failure, unspecified whether with hypoxia or hypercapnia; J44.1 Chronic obstructive pulmonary disease with (acute) exacerbation; J45.901 Unspecified asthma with (acute) exacerbation; M94.0 Chondrocostal junction syndrome [Tietze]; G40.909 Epilepsy, unspecified, not intractable, without status epilepticus; E78.5 Hyperlipidemia, unspecified; I10 Essential (primary) hypertension; Z20.828 Contact with and (suspected) exposure to other viral communicable diseases; Z77.22 Contact with and (suspected) exposure to environmental tobacco smoke (acute) (chronic); E11.9 Type 2 diabetes mellitus without complications; R74.01 Elevation of levels of liver transaminase levels; F31.9 Bipolar disorder, unspecified; I45.81 Long QT syndrome; E66.01 Morbid (severe) obesity due to excess calories; Z68.38 Body mass index [BMI] 38.0-38.9, adult; Z98.891 History of uterine scar from previous surgery; Z99.81 Dependence on supplemental oxygen
CPT/HCPCS: 36415; 36600; 71045; 76937; 80048; 80053; 80061; 80305; 82375; 82805; 82962; 83036; 83605; 83735; 83880; 84100; 84443; 84484; 84703; 85025; 87426; 93005; 93306; 93458; 93970; 94640; 96374; 99285; C1725; C1760; C1769; C1887; C1893; J1200; J1644; J1650; J1815; J2250; J2270; J2920; J2930; J3010; J3490; Q0163; Q9967

== ENCOUNTER 2021-10-18 17:16 | Emergency (ER) | payer MEDICARE, MEDICAID ==
[~2021-10-18] VITALS: Ht 165.1 cm; Wt 109.0 kg
[~2021-10-18 17:16] MED LIST changes: +ALBU18HF2 IH; -CHLO25TA27 GT; +CHLO25TA27 PO; -DIVAL250 PO; +FAMO20TA8 MT; -GABA-290 PO; -PRED5TAB48 PO
[2021-10-18 17:47] VITALS: BP 140/86
== END 2021-10-18 19:30 | disposition left against medical advice (07) ==
LOC: ER 17:16
DX: Z53.21 Procedure and treatment not carried out due to patient leaving prior to being seen by health care provider (principal); R11.2 Nausea with vomiting, unspecified; R94.31 Abnormal electrocardiogram [ECG] [EKG]
CPT/HCPCS: 93005

== ENCOUNTER 2023-07-15 01:41 | Emergency (ER) | payer MEDICARE, MEDICAID ==
[~2023-07-15] VITALS: Ht 165.1 cm; Wt 108.5 kg
[~2023-07-15 01:41] MED LIST changes: -HYDR10SY11 PO; +HYDR10SY16 PO
[2023-07-15 01:58] VITALS: BP 147/90; TEMP 98.4
[2023-07-15] MEDS ORDERED: METHYLPREDNISOLONE SOD SUCC 125MG/2ML (ACT-O-VIAL) IV STA (02:14)
[2023-07-15 02:21] LABS: BASOPHILS % 0.2 % (0.0-2.0); EOSINOPHILS % 0.3 % (0.0-5.0); HEMATOCRIT. 40.7 % (36.0-48.0); HEMOGLOBIN. 13.5 g/dL (12.0-16.0); LYMPHOCYTES % 18.1 % (20.0-50.0); MEAN CORPUSCULAR HGB CONC 33.1 g/dL (31.0-37.0); MEAN CORPUSCULAR VOLUME 90.5 fL (81.0-99.0); MEAN PLATELET VOLUME 8.7 fl (7.4-10.4); NEUTROPHILS % 77.4 % (40.0-76.0); PLATELET 242 x1000/uL (130-400); RED CELL DISTRIBUTION WIDTH 16.1 % (11.6-14.6); WHITE BLOOD COUNT 12.4 x1000/uL (4.5-11.0)
[2023-07-15 02:29] LABS: CHLORIDE 106 mEq/L (98-107); POTASSIUM 3.7 mEq/L (3.5-5.1); SODIUM 141 mEq/L (136-145)
[2023-07-15 02:30] LABS: CALCIUM 8.1 mg/dL (8.7-10.4); CARBON DIOXIDE 29 mEq/L (21-32)
[2023-07-15 02:35] LABS: CREATININE 0.9 mg/dL (0.6-1.0); GLUCOSE 105 mg/dL (70-105); TROPONIN I HIGH SENSITIVITY 4 ng/L (3.0-34); UREA NITROGEN BLOOD 17 mg/dL (9-23)
[2023-07-15 02:37] LABS: ALANINE AMINOTRANSFERASE 14 IU/L (10-49); ALBUMIN 4.1 g/dL (3.2-4.8); ASPARTATE AMINOTRANSFERASE 16 IU/L (<34); BILIRUBIN TOTAL 0.2 mg/dL (0.1-1.0); PROTEIN TOTAL 6.5 g/dL (6.0-8.3)
[2023-07-15 02:50] VITALS: PULSE 85; RESP 20; O2SAT 98
[2023-07-15] MEDS: IPRATROPIUM BROMIDE (0.02%) 0.5MG/2.5ML NEB HHN STA (03:06)
[2023-07-15] MEDS: ALBUTEROL (0.083%) 2.5MG/3ML NEB HHN STA (03:07)
[2023-07-15 03:23] LABS: HCG SCREEN NEGATIVE
== END 2023-07-15 04:53 | disposition left against medical advice (07) ==
LOC: ER 01:54
DX: J45.901 Unspecified asthma with (acute) exacerbation (principal); F31.9 Bipolar disorder, unspecified; J44.9 Chronic obstructive pulmonary disease, unspecified; E11.9 Type 2 diabetes mellitus without complications; Z86.73 Personal history of transient ischemic attack (TIA), and cerebral infarction without residual deficits; Z98.890 Other specified postprocedural states; Z88.5 Allergy status to narcotic agent; Z88.6 Allergy status to analgesic agent; Z88.8 Allergy status to other drugs, medicaments and biological substances; Z91.040 Latex allergy status
CPT/HCPCS: 94640; 80053; 84703; 85025; 84484; 36415; 71045; 93005; 99285; J2930

== ENCOUNTER 2024-11-18 15:10 | Emergency (ER) | payer MEDICARE, MEDICAID ==
[~2024-11-18] VITALS: Ht 167.6 cm; Wt 105.0 kg
[2024-11-18 15:25] VITALS: O2SAT 98
[2024-11-18 15:58] VITALS: TEMP 36.7; O2SAT 99
[2024-11-18] MEDS ORDERED: AZITHROMYCIN 500MG/250ML 250 ML IV ONE (16:15)
[2024-11-18] MEDS: IPRATROPIUM BROMIDE (0.02%) 0.5MG/2.5ML NEB HHN SCH (16:35)
[2024-11-18] MEDS: ALBUTEROL (0.083%) 2.5MG/3ML NEB HHN SCH (16:35)
[2024-11-18 16:45] VITALS: BP 150/104; PULSE 98
[2024-11-18] MEDS: METHYLPREDNISOLONE SOD SUCC 125MG/2ML (ACT-O-VIAL) IV ONE (16:45)
[2024-11-18] MEDS: METOCLOPRAMIDE HCL 10MG/2ML VIAL IV ONE (16:45)
[2024-11-18] MEDS: MORPHINE SULFATE 4 MG/ML INJ (FOR IV/IM USE) IV ONE (16:45)
[2024-11-18 16:47] LABS: CREATININE 1.2 mg/dL (0.6-1.0); UREA NITROGEN BLOOD 31 mg/dL (9-23)
[2024-11-18 16:48] VITALS: RESP 20
[2024-11-18 16:48] LABS: BASOPHILS % 0.4 % (0.0-2.0); EOSINOPHILS % 0.0 % (0.0-5.0); HEMATOCRIT. 39.2 % (36.0-48.0); HEMOGLOBIN. 12.5 g/dL (12.0-16.0); LYMPHOCYTES % 16.7 % (20.0-50.0); MEAN PLATELET VOLUME 9.3 fl (7.4-10.4); MONOCYTES % 2.1 % (2.0-8.0); NEUTROPHILS % 80.8 % (40.0-76.0); PLATELET 165 x1000/uL (130-400); RED BLOOD CELL COUNT 4.38 mill/uL (4.2-5.4); RED CELL DISTRIBUTION WIDTH 17.6 % (11.6-14.6)
[2024-11-18 16:49] LABS: ASPARTATE AMINOTRANSFERASE 26 IU/L (<34); BILIRUBIN DIRECT < 0.1 mg/dL (<=3.0); TROPONIN I HIGH SENSITIVITY < 4 ng/L (3.0-34)
[2024-11-18 16:50] LABS: BILIRUBIN TOTAL 0.3 mg/dL (0.1-1.0); PROTEIN TOTAL 7.3 g/dL (6.0-8.3)
[2024-11-18] MEDS: MAGNESIUM 2 G PREMIX 50 ML IV ONE (16:51)
== END 2024-11-18 17:45 | disposition left against medical advice (07) ==
LOC: ER 15:10 → CANBEDREQ 17:24 → ER 17:45
DX: R06.02 Shortness of breath (principal); I50.9 Heart failure, unspecified; J44.9 Chronic obstructive pulmonary disease, unspecified; Z79.899 Other long term (current) drug therapy; Z86.73 Personal history of transient ischemic attack (TIA), and cerebral infarction without residual deficits; Z90.710 Acquired absence of both cervix and uterus; Z88.5 Allergy status to narcotic agent; Z88.6 Allergy status to analgesic agent
CPT/HCPCS: 99285; 94070; 96365; 96375; 71045; 80076; 80048; 83880; 83735; 85025; 84484; 36415; 94660; 94664; 93005; J2919; J3475; J2765; J2270; A4606